=== PATIENT | male | born 1945 | race Caucasian/White ===

== ENCOUNTER 2016-08-17 17:48 | Emergency (ER) | payer OTHER, MEDICARE ==
[2016-08-17 17:59] VITALS: BP 169/79
[2016-08-17] MEDS ORDERED: Sodium Chloride 0.9% 10 ML Syringe FLUSH PRN (18:02)
[2016-08-17] MEDS ORDERED: Meclizine 12.5 MG Tab PO ONE (18:18)
--- NOTE | 2016-08-17 19:11 | EDM.PDOC ---
ED HPI GENERAL MEDICAL PROBLEM - General Chief Complaint: Syncope Stated Complaint: [facility] Time Seen by Provider: 08/17/16 18:01 Source of Information: Reports: Patient, RN Notes Reviewed - History of Present Illness INITIAL COMMENTS - FREE TEXT/NARRATIVE: 71-year-old male comes in after experiencing sudden onset of severe vertigo type dizziness at home this afternoon about an hour and a half ago. He was moving some things around in his garage, when he straightened or lifted his head on one occasion he had sudden onset of severe vertigo type dizziness. He states things were really spinning around on him. He was nauseated with this, somewhat lightheaded and dizzy. He did call EMS. When they arrived his blood pressure was very high in the 210 systolic range. Therefore they did recommend transport here to the ED. Symptoms did resolve while in route here to the ED with [place] living about [place] miles out of town. He's had no headache. He has chronic tinnitus. The nausea is gone. He has chronic paresthesias of both feet. He has Had no focal weakness. No speech difficulty chest pain, palpitations or other unusual symptomatology with this. - Related Data Allergies Allergy/AdvReac Type Severity Reaction Status Date / Time No Known Allergies Allergy Verified 11/20/13 19:15 Home Meds: Home Meds Allopurinol [Zyloprim] 200 mg PO DAILY 11/20/13 [History] Amoxicillin 500 mg PO BID #2 tab 11/20/13 [Rx] Amoxicillin/Clavulanate K [Augmentin XR 1000 MG] 2 tab PO Q12H #40 tab 11/20/13 [Rx] Amoxicillin/Potassium Clav [Augmentin 875-125 Tablet] 1 each PO BID #2 tablet [Rx] Aspirin [Filiberto Chewable Aspirin] 81 mg PO DAILY 11/20/13 [History] Omeprazole 40 mg PO DAILY 11/20/13 [History] Terazosin HCl [Terazosin] 2 mg PO DAILY 11/20/13 [History] metroNIDAZOLE [Flagyl] 500 mg PO Q8H #30 tab 11/20/13 [Rx] metroNIDAZOLE [Metronidazole] 500 mg PO TID #3 tablet 11/20/13 [Rx] Past Medical History HEENT History: Reports: Cataract Cardiovascular History: Reports: Hypertension Gastrointestinal History: Reports: Other (See Below) Other Gastrointestinal History: gallstones Neurological History: Reports: CVA, TIA, Other (See Below) Other Neuro History: hemorrhagic stroke in 1994 - Past Surgical History Respiratory Surgical History: Reports: None GI Surgical History: Reports: Appendectomy, Other (See Below) Other GI Surgeries/Procedures: gallstone removal, liver laceration from gallstone removal, 14" of colon removed Social & Family History - Tobacco Use Smoking Status *Q: Former Smoker Years of Tobacco use: 11 Used Tobacco, but Quit: Yes Month Tobacco Last Used: 5 days Second Hand Smoke Exposure: No - Caffeine Use Caffeine Use: Reports: Coffee, Soda - Alcohol Use Days Per Week of Alcohol Use: 0 - Recreational Drug Use Recreational Drug Use: No ED ROS GENERAL - Review of Systems Review Of Systems: See Below Constitutional: Reports: Diaphoresis (Mild, gone). Denies: Fever, Chills HEENT: Reports: Vertigo (Severe, gone). Denies: Ear Pain, Sinus Problem, Throat Pain Respiratory: Denies: Shortness of Breath Cardiovascular: Denies: Chest Pain GI/Abdominal: Reports: Nausea. Denies: Abdominal Pain, Diarrhea, Vomiting Musculoskeletal: Denies: Shoulder Pain, Arm Pain, Leg Pain Skin: Reports: No Symptoms Neurological: Reports: Dizziness. Denies: Trouble Speaking (Severe, gone), Weakness (No focal weakness) ED EXAM, DIZZINESS - Physical Exam Exam: See Below General Appearance: Alert, No Apparent Distress Eye Exam: Left Eye: Other (Left pupil is irregular from prior cataract surgery) Ears: Normal External Exam, Normal Canal, Normal TMs Nose: Normal Inspection Throat/Mouth: Normal Inspection, Normal Oropharynx Head Exam: Atraumatic, Other (No facial droop). No: Facial Swelling Neck: Supple, Full Range of Motion Respiratory/Chest: No Respiratory Distress, Lungs Clear, Normal Breath Sounds Cardiovascular: Regular Rate, Rhythm GI/Abdominal: Soft, Non-Tender Neurological: Alert, No Motor/Sensory Deficits, Other Extremities: Normal Inspection, Normal Range of Motion Skin Exam: Warm, Dry, Normal Color EKG INTERPRETATION EKG Date: 08/17/16 Rhythm: NSR [place]: Normal P-Wave: Present QRS: Normal ST-T: Normal Course - Vital Signs Last Recorded V/S: Last Vital Signs Temp 97.7 F 08/17/16 17:56 Pulse 86 08/17/16 17:56 Resp 21 H 08/17/16 17:56 BP 169/79 H 08/17/16 17:56 Pulse Ox 93 L 08/17/16 18:06 - Orders/Labs/Meds Orders: Active Orders 24 hr Category Date Time Status EKG 12 Lead [EKG Documentation Completion] [] STAT Care 08/17/16 17:56 Active Peripheral IV Care [RC] . DIRECTED Care 08/17/16 18:02 Active Sodium Chloride 0.9% [Saline Flush] Med 08/17/16 18:02 Active 10 ml FLUSH ASDIRECTED PRN Peripheral IV Insertion Adult [OM.PC] Stat Oth 08/17/16 18:02 Ordered Medication Orders Sodium Chloride (Saline Flush) 10 ml FLUSH ASDIRECTED PRN PRN Reason: Keep Vein Open Last Admin: 08/17/16 18:24 Dose: 10 ml Labs: Laboratory Tests 08/17/16 08/17/16 Range/Units 18:19 18:19 WBC 5.88 (4.23-9.07) K/mm3 RBC 4.47 L (4.63-6.08) M/mm3 Hgb 13.6 L (13.7-17.5) gm/L Hct 38.8 L (40.1-51.0) % MCV 86.8 (79.0-92.2) fl MCH 30.4 (25.7-32.2) pg MCHC 35.1 (32.2-35.5) g/dl RDW Std Deviation 46.9 H (35.1-43.9) fL Plt Count 142 L (163-337) K/mm3 MPV 10.4 (9.4-12.3) fl Neut % (Auto) 67.3 (34.0-67.9) % Lymph % (Auto) 19.0 L (21.8-53.1) % [place] % (Auto) 9.9 (5.3-12.2) % Eos % (Auto) 3.1 (0.8-7.0) Baso % (Auto) 0.5 (0.1-1.2) % Neut # (Auto) 3.96 (1.78-5.38) K/mm3 Lymph # (Auto) 1.12 L (1.32-3.57) K/mm3 [place] # (Auto) 0.58 (0.30-0.82) K/mm3 Eos # (Auto) 0.18 (0.04-0.54) K/mm3 Baso # (Auto) 0.03 (0.01-0.08) K/mm3 Sodium 137 (136-145) mEq/L Potassium 3.7 (3.5-5.1) mEq/L Chloride 103 (98-107) mEq/L Carbon Dioxide 21 (21-32) mEq/L Anion Gap 16.7 H (5-15) BUN 24 H (7-18) mg/dL Creatinine 1.6 H (0.7-1.3) mg/dL Est Cr Clr Drug Dosing 45.13 mL/min Estimated GFR (MDRD) 43 (>60) mL/min BUN/Creatinine Ratio 15.0 (14-18) Glucose 184 H (83-115) mg/dL Calcium 9.0 (8.5-10.1) mg/dL Total Bilirubin 0.4 (0.2-1.0) mg/dL AST 34 (15-37) U/L ALT 63 (16-63) U/L Alkaline Phosphatase 76 (46-116) U/L Total Protein 7.0 (6.4-8.2) g/dl Albumin 3.8 (3.4-5.0) g/dl Globulin 3.2 gm/dL Albumin/Globulin Ratio 1.2 (1-2) Meds: Medications Generic Name Dose Route Start Last Admin Trade Name Freq PRN Reason Stop Dose Admin Sodium Chloride 10 ml 08/17/16 18:02 08/17/16 18:24 Saline Flush FLUSH 10 ml ASDIRECTED PRN Administration Keep Vein Open Discontinued Medications Generic Name Dose Route Start Last Admin Trade Name Freq PRN Reason Stop Dose Admin Meclizine HCl 25 mg 08/17/16 18:18 08/17/16 18:25 Antivert PO 08/17/16 18:19 25 mg ONETIME ONE Administration - Re-Assessments/Exams Free Text/Narrative Re-Assessment/Exam: 08/17/16 19:08 Patient is been resting comfortably while here in the ED. Labs are normal. EKG was normal. He continues in sinus rhythm no ectopy. Departure - Departure Time of Disposition: 19:11 Disposition: Home, Self-Care 01 Condition: Fair Clinical Impression: Labyrinthitis Qualifiers: Laterality: unspecified laterality Qualified Code(s): H83.09 - Labyrinthitis, unspecified ear - Discharge Information Forms: ED Department Discharge Additional Instructions: Rest, drink plenty of water to maintain hydration, move slowly and carefully. If you do experience onset of severe dizziness or vertigo again the best thing to do is just lie down and rest for about 20-30 minutes holding your head still. If the severe vertigo continues or symptoms otherwise worsening return to ED as needed. I do recommend following up with your regular medical provider next week if possible, call Friday morning for appointment. I do recommend picking up some meclizine or Antivert on your way out of town today. It is available OTC. You will need to ask the pharmacist for that. You may take 25 mg every 8-12 hours if needed for any further dizziness or vertigo. - My Orders Last 24 Hours: My Active Orders 08/17/16 17:56 EKG 12 Lead [EKG Documentation Completion] [RC] STAT 08/17/16 18:02 Peripheral IV Care [RC] . DIRECTED Sodium Chloride 0.9% [Saline Flush] 10 ml FLUSH ASDIRECTED PRN Peripheral IV Insertion Adult [OM.PC] Stat - Assessment/Plan Last 24 Hours: My Active Orders 08/17/16 17:56 EKG 12 Lead [EKG Documentation Completion] [RC] STAT 08/17/16 18:02 Peripheral IV Care [RC] . DIRECTED Sodium Chloride 0.9% [Saline Flush] 10 ml FLUSH ASDIRECTED PRN Peripheral IV Insertion Adult [OM.PC] Stat
== END 2016-08-17 19:26 | disposition home or self-care (01) ==
LOC: JD.ED 17:48
DX: H83.09 Labyrinthitis, unspecified ear (principal); I10 Essential (primary) hypertension; Z86.73 Personal history of transient ischemic attack (TIA), and cerebral infarction without residual deficits; Z90.49 Acquired absence of other specified parts of digestive tract; Z87.891 Personal history of nicotine dependence; Z79.899 Other long term (current) drug therapy; Z79.82 Long term (current) use of aspirin
CPT/HCPCS: 36415; 80053; 85025; 93005; 99284; A9270; J7050

== ENCOUNTER 2017-10-17 16:55 | Inpatient (IN) | payer OTHER, MEDICARE ==
--- NOTE | 2017-10-17 17:40 | EDM.PDOC ---
ED HPI GENERAL MEDICAL PROBLEM - General Chief Complaint: Cardiovascular Problem Stated Complaint: HEART SKIPPING BEATS Time Seen by Provider: 10/17/17 17:13 Source of Information: Reports: Patient History Limitations: Reports: No Limitations - History of Present Illness INITIAL COMMENTS - FREE TEXT/NARRATIVE: Patient is a 72-year-old male who presents ED with shortness of breath, palpitations, chronic cough, and abdominal discomfort. States today with bending over felt his heart was going fast and skipping. He became nauseous and short of breath. Son who is present states the patient was winded with exertion. On examination with admission to the ED patient's O2 sats were 84% on room air. With talking O2 sats would decrease. Currently on 3 L/m at 92%. Per patient is O2 sats are chronically low. States he's felt some discomfort to his abdomen along where a large surgical incision with ventral hernia is present. He 's been bloated with excessive burping. No diarrhea. He has a history constipation. No blood present within the stool. He's been mildly nauseated at times with no emesis. There's been no orthopnea/PND. Recent weight gain. He currently has no chest pain with examination. He has had no times any chest pain with exertion. Of note patients abdominal complaint has been chronic and been going on for many years after surgery. It is aggravated with eating, movement, palpation, coughing among other things. This is not a new occurrence. Past medical history includes: Gout, coronary disease, stroke, TIA, diabetes, hypertension, GERD, hyponatremia. Current medications see list. - Related Data Allergies Allergy/AdvReac Type Severity Reaction Status Date / Time No Known Allergies Allergy Verified 11/20/13 19:15 Home Meds: Home Meds Allopurinol [Zyloprim] 200 mg PO DAILY 11/20/13 [History] Amoxicillin 500 mg PO BID #2 tab 11/20/13 [Rx] Amoxicillin/Clavulanate K [Augmentin XR 1000 MG] 2 tab PO Q12H #40 tab 11/20/13 [Rx] Amoxicillin/Potassium Clav [Augmentin 875-125 Tablet] 1 each PO BID #2 tablet [Rx] Aspirin [Filiberto Chewable Aspirin] 81 mg PO DAILY 11/20/13 [History] Omeprazole 40 mg PO DAILY 11/20/13 [History] Terazosin HCl [Terazosin] 2 mg PO DAILY 11/20/13 [History] metroNIDAZOLE [Flagyl] 500 mg PO Q8H #30 tab 11/20/13 [Rx] metroNIDAZOLE [Metronidazole] 500 mg PO TID #3 tablet 11/20/13 [Rx] Past Medical History HEENT History: Reports: Cataract Cardiovascular History: Reports: Hypertension Gastrointestinal History: Reports: Other (See Below) Other Gastrointestinal History: gallstones Neurological History: Reports: CVA, TIA, Other (See Below) Other Neuro History: hemorrhagic stroke in 1994 - Past Surgical History Respiratory Surgical History: Reports: None GI Surgical History: Reports: Appendectomy, Other (See Below) Other GI Surgeries/Procedures: gallstone removal, liver laceration from gallstone removal, 14" of colon removed Social & Family History - Caffeine Use Caffeine Use: Reports: Coffee, Soda ED ROS GENERAL - Review of Systems Review Of Systems: ROS reveals no pertinent complaints other than HPI. ED EXAM, GENERAL - Physical Exam Exam: See Below Exam Limited By: No Limitations General Appearance: Alert, WD/WN, No Apparent Distress Ears: Hearing Grossly Normal Nose: Normal Inspection Throat/Mouth: Normal Voice, No Airway Compromise Neck: Normal Inspection, Supple Respiratory/Chest: No Respiratory Distress, Lungs Clear, Normal Breath Sounds, No Accessory Muscle Use, Chest Non-Tender Cardiovascular: Normal Peripheral Pulses, Regular Rate, Rhythm, Extra Beats ( PACS) Peripheral Pulses: 1+: Posterior Tibial (L), Posterior Tibial (R), 2+: Radial (L ), Radial (R) GI/Abdominal: Normal Bowel Sounds, Soft, No Organomegaly, No Distention, Tender (Over ventral wall hernia from previous surgery. chronic unchanged per patient. ) (Male) Exam: Deferred Rectal (Males) Exam: Deferred Extremities: Normal Inspection, Normal Range of Motion, Non-Tender, Normal Capillary Refill, Other (trace to 1+ bilaterally, chronic unchanged. ) Neurological: Alert, Oriented, CN II-XII Intact, Normal Cognition, No Motor/ Sensory Deficits Psychiatric: Normal Affect, Normal Mood Skin Exam: Warm, Dry, Intact, Normal Color Course - Vital Signs Last Recorded V/S: Last Vital Signs Temp 98.3 F 10/17/17 17:18 Pulse 83 10/17/17 17:18 Resp 24 H 10/17/17 17:18 BP 161/98 H 10/17/17 17:18 Pulse Ox 84 L 10/17/17 17:18 - Orders/Labs/Meds Orders: Active Orders 24 hr Category Date Time Status Admission Status [Patient Status] [ADT] Routine ADT 10/17/17 22:14 Active Cardiac Monitoring [RC] CONTINUOUS Care 10/17/17 22:07 Active EKG 12 Lead [EKG Documentation Completion] [RC] STAT Care 10/17/17 17:37 Active Height and Weight [RC] DAILY Care 10/17/17 22:06 Active Intake and Output [RC] QSHIFT Care 10/17/17 22:07 Active Oxygen Therapy [RC] PRN Care 10/17/17 22:06 Active Peripheral IV Care [RC] . DIRECTED Care 10/17/17 17:37 Active Up ad Rayne [RC] ASDIRECTED Care 10/17/17 22:06 Active VTE/DVT Education [RC] PER UNIT ROUTINE Care 10/17/17 22:06 Active Vital Signs [RC] Q4H Care 10/17/17 22:06 Active Heart Healthy Diet [DIET] Diet 10/17/17 Breakfast Active Abdomen Series w Chest 1V [CR] Stat Exams 10/17/17 17:36 Taken PE Chest [Ang Chest] [CT] Stat Exams 10/17/17 20:17 Taken UA W/MICROSCOPIC [URIN] Stat Lab 10/17/17 17:36 Ordered Acetaminophen [Tylenol] Med 10/17/17 22:06 Ordered 650 mg PO Q4H PRN Acetaminophen/HYDROcodone [[place] 325-5 MG] Med 10/17/17 22:06 Ordered 1 tab PO Q4H PRN HYDROmorphone [Dilaudid] Med 10/17/17 22:06 Ordered 0.25 mg IVPUSH Q2H PRN LORazepam [Ativan] Med 10/17/17 22:06 Ordered 1 mg IV Q6H PRN LORazepam [Ativan] Med 10/17/17 22:06 Ordered 2 mg IVPUSH Q4H PRN Metoprolol Tartrate [Lopressor] Med 10/17/17 22:06 Ordered 5 mg IVPUSH Q4H PRN Nicotine [Habitrol] Med 10/17/17 22:06 Ordered 21 mg TRDERM DAILY PRN Ondansetron [Zofran] Med 08/31/18 22:06 Ordered 4 mg IV Q6H PRN Potassium Rep Pharmacy to Dose [Pharmacy to Dose - Med 10/17/17 22:15 Ordered Potassium Replacement] 1 dose .XX ASDIRECTED Promethazine [Phenergan] 12.5 mg Med 10/17/17 22:06 Ordered Sodium Chloride 0.9% [Normal Saline] 50 ml IV Q6H Sodium Chloride 0.9% [Normal Saline] 1,000 ml Med 10/17/17 17:45 Active IV ASDIRECTED Sodium Chloride 0.9% [Normal Saline] 100 ml Med 10/17/17 21:45 Active IV ASDIRECTED Sodium Chloride 0.9% [Normal Saline] 100 ml Med 10/17/17 22:00 Active IV ASDIRECTED Sodium Chloride 0.9% [Saline Flush] Med 10/17/17 17:37 Active 10 ml FLUSH ASDIRECTED PRN hydrALAZINE [Apresoline] Med 10/17/17 22:06 Ordered 20 mg IVPUSH Q4H PRN Peripheral IV Insertion Adult [OM.PC] Routine Oth 10/17/17 17:37 Ordered Resuscitation Status Routine Resus Stat 10/17/17 22:06 Ordered Medication Orders Acetaminophen (Tylenol) 650 mg PO Q4H PRN PRN Reason: Pain (Mild 1-3)/fever Hydrocodone Bitart/Acetaminophen ([place] 325-5 Mg) 1 tab PO Q4H PRN PRN Reason: Pain (moderate 4-6) Hydralazine HCl (Apresoline) 20 mg IVPUSH Q4H PRN PRN Reason: Hypertension Hydromorphone HCl (Dilaudid) 0.25 mg IVPUSH Q2H PRN PRN Reason: Pain (severe 7-10) Sodium Chloride (Normal Saline) 1,000 mls @ 125 mls/hr IV ASDIRECTED NAZ Last Admin: 10/17/17 18:16 Dose: 125 mls/hr Sodium Chloride (Normal Saline) 100 mls @ 4 mls/sec IV ASDIRECTED NAZ Last Admin: 10/17/17 21:45 Dose: 4 mls/sec Sodium Chloride (Normal Saline) 100 mls @ 4 mls/sec IV ASDIRECTED [facility] Promethazine HCl 12.5 mg/ (Sodium Chloride) 50.5 mls @ 100 mls/hr IV Q6H PRN PRN Reason: Nausea/Vomiting Lorazepam (Ativan) 2 mg IVPUSH Q4H PRN PRN Reason: Seizures Lorazepam (Ativan) 1 mg IV Q6H PRN PRN Reason: Nausea/Vomiting Metoprolol Tartrate (Lopressor) 5 mg IVPUSH Q4H PRN PRN Reason: Tachycardia Nicotine (Habitrol) 21 mg TRDERM DAILY PRN PRN Reason: Nicotine Dependence Ondansetron HCl (Zofran) 4 mg IV Q6H PRN PRN Reason: Nausea/Vomiting Potassium Chloride (Pharmacy To Dose - Potassium Replacement) 1 dose .XX ASDIRECTED NAZ Sodium Chloride (Saline Flush) 10 ml FLUSH ASDIRECTED PRN PRN Reason: Keep Vein Open Last Admin: 10/17/17 21:47 Dose: 10 ml Admin: 10/17/17 18:18 Dose: 10 ml Labs: Laboratory Tests 10/17/17 10/17/17 10/17/17 Range/Units 07:05 17:05 17:05 WBC 6.08 (4.23-9.07) K/mm3 RBC 5.15 (4.63-6.08) M/mm3 Hgb 15.0 (13.7-17.5) gm/L Hct 43.7 (40.1-51.0) % MCV 84.9 (79.0-92.2) fl MCH 29.1 (25.7-32.2) pg MCHC 34.3 (32.2-35.5) g/dl RDW Std Deviation 45.1 H (35.1-43.9) fL Plt Count 161 L (163-337) K/mm3 MPV 10.9 (9.4-12.3) fl Neutrophils % (Manual) 75 H (40-60) % Band Neutrophils % 0 (0-10) % Lymphocytes % (Manual) 22 (20-40) % Atypical Lymphs % 0 % Monocytes % (Manual) 1 L (2-10) % Eosinophils % (Manual) 2 (0.8-7.0) % Basophils % (Manual) 0 L (0.2-1.2) Platelet Estimate Adequate RBC Morph Comment Normal D-Dimer, Quantitative (0.19-0.50) mg/L Sodium 141 (136-145) mEq/L Potassium 3.5 (3.5-5.1) mEq/L Chloride 103 (98-107) mEq/L Carbon Dioxide 24 (21-32) mEq/L Anion Gap 17.5 H (5-15) BUN 18 (7-18) mg/dL Creatinine 1.5 H (0.7-1.3) mg/dL Est Cr Clr Drug Dosing 47.42 mL/min Estimated GFR (MDRD) 46 (>60) mL/min BUN/Creatinine Ratio 12.0 L (14-18) Glucose 156 H (83-115) mg/dL Calcium 9.3 (8.5-10.1) mg/dL Magnesium 2.1 (1.8-2.4) mg/dl Total Bilirubin 0.4 (0.2-1.0) mg/dL AST 48 H (15-37) U/L ALT 68 H (16-63) U/L Alkaline Phosphatase 80 (46-116) U/L Troponin I < 0.017 (0.00-0.056) ng/mL C-Reactive Protein 0.3 (<1.0) mg/dL NT-Pro-B Natriuret Pep 104 (0-125) pg/mL Total Protein 7.3 (6.4-8.2) g/dl Albumin 3.8 (3.4-5.0) g/dl Globulin 3.5 gm/dL Albumin/Globulin Ratio 1.1 (1-2) Mycoplasma pneumon IgM Negative (NEGATIVE) 10/17/17 10/17/17 Range/Units 17:05 20:55 WBC (4.23-9.07) K/mm3 RBC (4.63-6.08) M/mm3 Hgb (13.7-17.5) gm/L Hct (40.1-51.0) % MCV (79.0-92.2) fl MCH (25.7-32.2) pg MCHC (32.2-35.5) g/dl RDW Std Deviation (35.1-43.9) fL Plt Count (163-337) K/mm3 MPV (9.4-12.3) fl Neutrophils % (Manual) (40-60) % Band Neutrophils % (0-10) % Lymphocytes % (Manual) (20-40) % Atypical Lymphs % % Monocytes % (Manual) (2-10) % Eosinophils % (Manual) (0.8-7.0) % Basophils % (Manual) (0.2-1.2) Platelet Estimate RBC Morph Comment D-Dimer, Quantitative 0.54 H (0.19-0.50) mg/L Sodium (136-145) mEq/L Potassium (3.5-5.1) mEq/L Chloride (98-107) mEq/L Carbon Dioxide (21-32) mEq/L Anion Gap (5-15) BUN (7-18) mg/dL Creatinine (0.7-1.3) mg/dL Est Cr Clr Drug Dosing mL/min Estimated GFR (MDRD) (>60) mL/min BUN/Creatinine Ratio (14-18) Glucose (83-115) mg/dL Calcium (8.5-10.1) mg/dL Magnesium (1.8-2.4) mg/dl Total Bilirubin (0.2-1.0) mg/dL AST (15-37) U/L ALT (16-63) U/L Alkaline Phosphatase (46-116) U/L Troponin I < 0.017 (0.00-0.056) ng/mL C-Reactive Protein (<1.0) mg/dL NT-Pro-B Natriuret Pep (0-125) pg/mL Total Protein (6.4-8.2) g/dl Albumin (3.4-5.0) g/dl Globulin gm/dL Albumin/Globulin Ratio (1-2) Mycoplasma pneumon IgM (NEGATIVE) Meds: Medications Generic Name Dose Route Start Last Admin Trade Name Freq PRN Reason Stop Dose Admin Acetaminophen 650 mg 10/17/17 22:06 Tylenol PO Q4H PRN Pain (Mild 1-3)/fever Hydrocodone Bitart/Acetaminophen 1 tab 10/17/17 22:06 [place] 325-5 Mg PO Q4H PRN Pain (moderate 4-6) Hydralazine HCl 20 mg 10/17/17 22:06 Apresoline IVPUSH Q4H PRN Hypertension Hydromorphone HCl 0.25 mg 10/17/17 22:06 Dilaudid IVPUSH Q2H PRN Pain (severe 7-10) Sodium Chloride 1,000 mls @ 125 mls/hr 10/17/17 17:45 10/17/17 18:16 Normal Saline IV 125 mls/hr ASDIRECTED NAZ Administration Sodium Chloride 100 mls @ 4 mls/sec 10/17/17 21:45 10/17/17 21:45 Normal Saline IV 4 mls/sec ASDIRECTED NAZ Administration Sodium Chloride 100 mls @ 4 mls/sec 10/17/17 22:00 Normal Saline IV ASDIRECTED NAZ Promethazine HCl 12.5 mg/ 50.5 mls @ 100 mls/hr 10/17/17 22:06 Sodium Chloride IV Q6H PRN Nausea/Vomiting Lorazepam 2 mg 10/17/17 22:06 Ativan IVPUSH Q4H PRN Seizures Lorazepam 1 mg 10/17/17 22:06 Ativan IV Q6H PRN Nausea/Vomiting Metoprolol Tartrate 5 mg 10/17/17 22:06 Lopressor IVPUSH Q4H PRN Tachycardia Nicotine 21 mg 10/17/17 22:06 Habitrol TRDERM DAILY PRN Nicotine Dependence Ondansetron HCl 4 mg 10/17/17 22:06 Zofran IV Q6H PRN Nausea/Vomiting Potassium Chloride 1 dose 10/17/17 22:15 Pharmacy To Dose - Potassium Replacement .XX ASDIRECTED NAZ Sodium Chloride 10 ml 10/17/17 17:37 10/17/17 21:47 Saline Flush FLUSH 10 ml ASDIRECTED PRN Administration Keep Vein Open Discontinued Medications Generic Name Dose Route Start Last Admin Trade Name Freq PRN Reason Stop Dose Admin Iopamidol 100 ml 10/17/17 21:39 10/17/17 21:40 [id number] (76%) IVPUSH 10/17/17 21:40 100 ml ONETIME ONE Administration Iopamidol 50 ml 10/17/17 21:39 10/17/17 21:40 [id number] (76%) IVPUSH 10/17/17 21:40 50 ml ONETIME ONE Administration Iopamidol 100 ml 10/17/17 21:40 10/17/17 21:42 Isovue-370 (76%) IVPUSH 10/17/17 21:41 100 ml ONETIME ONE Administration Iopamidol 100 ml 10/17/17 21:45 10/17/17 21:46 Isovue-370 (76%) IVPUSH 10/17/17 21:46 100 ml ONETIME ONE Administration - Re-Assessments/Exams Free Text/Narrative Re-Assessment/Exam: IV established with normal saline. Initial labs and studies will include: CBC, chem 14, CRP, d-dimer, magnesium, mycoplasma pneumonia, proBNP, troponin, UA, EKG, and chest with abdominal series. EKG sinus rhythm at a rate of 98 with early R-wave transition, consider RVH, septal hypertrophy, occasional multifocal PVCs, QT is mildly prolonged. Chest x-ray reveals a small calcified nodule to the right lateral chest per patient secondary to agent orange. No other acute findings noted. X-ray of the abdomen nonspecific air in stool pattern. This was reviewed with Dr. Munguia. Final interpretation is pending. Labs reviewed: CBC essentially normal. D-dimer 0.54 for appropriate for patient' s age. Initial panel revealed AG 17.5, creatinine 1.5, AST and LT mildly elevated, troponin within normal limits. CRP normal. ProBNP 104. Mycoplasma is pending. During his ED visit patient has not experienced any additional episodes of atrial fibrillation. He is in a sinus rhythm with a few PACs. Second troponin ordered for 2044. 10/17/17 20:09 Patient ambulated with no increasing shortness of breath. SPO2 was 88% until he returned back to his room when it dropped to 85%. Again patient had no shortness of breath at all. I have discussed with the patient and obtaining a CTA of the chest to ensure he does not have a PE which is unlikely but due to his hypoxia and shortness of breath with admission it is of concern. Patient agrees to proceed with CT of the chest PE protocol. We have contacted medic with some relation to home O2 in preparation for discharge. 10/17/17 21:07 CTA of the chest impression: No acute findings. No central pulmonary embolism. Study is technically limited. Splenomegaly present. 2113 Per satellite tv technician installer the CTA was suboptimal. CT report did reveal the more peripheral first and second order branches cannot be adequately assessed. Thus CTA of the chest PE protocol will be repeated. Reviewed Tele with initial admission. I have not observed any episodes of a- fib. 2137 I discussed the patient with Dr. Colmenares he has agreed to admit the patient for hypoxia, telemetry for arrhythmias, further workup for COPD, sleep apnea, and possible medication changes for hypertension. There is a possibility the hypoxia secondary to bronchospasm secondary to the beta guille usage. MCG will be completed. Patient will be admitted to [facility] with Tele. MCG has been completed per nursing staff. 2nd CT of the chest PE protocol impression: No evidence of acute pulmonary embolism. 10/17/17 21:59 Seconds troponin is negative. Departure - Departure Time of Disposition: 21:55 Disposition: Admitted As Inpatient 64 Condition: Fair Clinical Impression: Hypoxia Referrals: PCP,None [Primary Care Provider] - Forms: ED Department Discharge - My Orders Last 24 Hours: My Active Orders 10/17/17 17:36 Abdomen Series w Chest 1V [CR] Stat UA W/MICROSCOPIC [URIN] Stat 10/17/17 17:37 EKG 12 Lead [EKG Documentation Completion] [RC] STAT Peripheral IV Care [RC] . DIRECTED Sodium Chloride 0.9% [Saline Flush] 10 ml FLUSH ASDIRECTED PRN Peripheral IV Insertion Adult [OM.PC] Routine 10/17/17 17:45 Sodium Chloride 0.9% [Normal Saline] 1,000 ml IV ASDIRECTED 10/17/17 20:17 PE Chest [Ang Chest] [CT] Stat 10/17/17 21:45 Sodium Chloride 0.9% [Normal Saline] 100 ml IV ASDIRECTED 10/17/17 22:00 Sodium Chloride 0.9% [Normal Saline] 100 ml IV ASDIRECTED 10/17/17 22:14 Admission Status [Patient Status] [ADT] Routine - Assessment/Plan Last 24 Hours: My Active Orders 10/17/17 17:36 Abdomen Series w Chest 1V [CR] Stat UA W/MICROSCOPIC [URIN] Stat 10/17/17 17:37 EKG 12 Lead [EKG Documentation Completion] [RC] STAT Peripheral IV Care [RC] . DIRECTED Sodium Chloride 0.9% [Saline Flush] 10 ml FLUSH ASDIRECTED PRN Peripheral IV Insertion Adult [OM.PC] Routine 10/17/17 17:45 Sodium Chloride 0.9% [Normal Saline] 1,000 ml IV ASDIRECTED 10/17/17 20:17 PE Chest [Ang Chest] [CT] Stat 10/17/17 21:45 Sodium Chloride 0.9% [Normal Saline] 100 ml IV ASDIRECTED 10/17/17 22:00 Sodium Chloride 0.9% [Normal Saline] 100 ml IV ASDIRECTED 10/17/17 22:14 Admission Status [Patient Status] [ADT] Routine
[2017-10-17] MEDS: Sodium Chloride 0.9% 1,000 ML IV SCH (18:16)
[2017-10-17] MEDS: Sodium Chloride 0.9% 10 ML Syringe FLUSH PRN ×2 (18:18→21:47)
[2017-10-17] MEDS ORDERED: Iopamidol 755 Mg/ML 100 ML Bottle IVPUSH ONE ×3 (21:39→21:45)
[2017-10-17] MEDS ORDERED: Iopamidol 755 MG/ML 50 ML Bottle IVPUSH ONE (21:39)
[2017-10-17] MEDS ORDERED: Sodium Chloride 0.9% 100 ML IV SCH ×2 (21:45→22:00)
[2017-10-17] MEDS ORDERED: Acetaminophen 325 MG Tab PO PRN (22:06)
[2017-10-17] MEDS ORDERED: Acetaminophen/HYDROcodone 325-5 MG Tab PO PRN (22:06)
[2017-10-17] MEDS ORDERED: LORazepam 2 MG/ML SDV IVPUSH PRN (22:06)
[2017-10-17] MEDS ORDERED: Ondansetron 4 MG/2 ML SDV IV PRN (22:06)
[2017-10-17] MEDS ORDERED: hydrALAZINE 20 MG/ML SDV IVPUSH PRN (22:06)
[2017-10-17] MEDS ORDERED: HYDROmorphone 0.5 MG/0.5 ML Syringe IVPUSH PRN (22:06)
[2017-10-17] MEDS ORDERED: Metoprolol Tartrate 5 MG/5 ML SDV IVPUSH PRN (22:06)
[2017-10-17] MEDS ORDERED: LORazepam 2 MG/ML SDV IV PRN (22:06)
[2017-10-17] MEDS ORDERED: Nicotine 21 MG/24 Hr Patch TRDERM PRN (22:06)
[2017-10-17] MEDS ORDERED: Promethazine 12.5 MG in Sodium Chloride 0.9% 50 ML IV PRN (22:06)
[2017-10-17] MEDS ORDERED: Bisacodyl 5 MG Tab PO PRN (22:38)
[2017-10-17] MEDS ORDERED: Albuterol/Ipratropium 3.0-0.5 MG/3 ML Neb Soln NEB PRN (22:38)
[2017-10-17] MEDS ORDERED: Docusate Sodium 100 MG Cap PO PRN (22:38)
[2017-10-17] MEDS ORDERED: Zolpidem 5 MG Tab PO PRN (22:38)
[2017-10-17] MEDS ORDERED: Polyethylene Glycol 3350 Powder 17 GM Packet PO PRN (22:38)
--- NOTE | 2017-10-18 00:16 | PCM.HP ---
H&P History of Present Illness - General Date of Service: 10/18/17 Admit Problem/Dx: Admission Diagnosis/Problem Admission Diagnosis/Problem Hypoxia Source of Information: Patient, Family, Provider, RN Notes Reviewed History Limitations: Reports: Physical Impairment - History of Present Illness Initial Comments - Free Text/Narative: This is a 72 yo elderly white male with past medical hx/o HTN, HLD, CAD, Hx/o Stoke/TIA, Gout, GERD, Pre-Diabetes, Hyponatremia, Spleen Disorder and Obesity who comes wiht multiple complaints of shortness of breath, heart palpitations, nausea, chronic cough and abdominal discomfort. His symptoms started when he he bend over and felt his heart goign fast and skipping. He reports no chets paisn or or dyspnea with exertion. Patient also reports abdominal discomfort and nauseas but w/o emesis. This seems to be chronic to him and is gravvated by eating, movement and coughing. He carries a chronic hx/o cosntipation but no diarrhea. He reports no recent trauma. His abdominal discomfort is coming from his incision site. He report no changes in his bowel habits or bowel character. His GI complaints are not new to him. His initial work up in ED shows a CBC remarkable for RDW of 45.1, Platelet count of 161, Neutrophils of 75%, Monocytes of 1%, and Basophils of 0%. His D- dimer is 0.54. His chemistrynis significant for anion gap of 17.5, Cr of 1.5, glucose of 156, AST of 48, and ALT of 68. His UA is negative for UTI. Chest x- ray shows mall calcified nodule to the right lateral chest. No other acute findings noted. X-ray of the abdomen nonspecific air in stool pattern. Chest CTA report reads negative for PE. Patient is being admitted for hypoxia and new onset of diabetes. He is full code. - Related Data Allergies/Adverse Reactions: Allergies Allergy/AdvReac Type Severity Reaction Status Date / Time No Known Allergies Allergy Verified 10/17/17 22:35 Home Medications: Home Meds RX: Allopurinol [Zyloprim] 200 mg PO DAILY 11/20/13 [History] RX: Omeprazole 40 mg PO DAILY 11/20/13 [History] RX: Terazosin HCl [Terazosin] 2 mg TOP BID 11/20/13 [History] Cholecalciferol (Vitamin D3) [Vitamin D3] 1,000 mg PO DAILY 10/18/17 [History] Clotrimazole [Clotrimazole 1%] 1 applic TOP BID 10/18/17 [History] Fluorometholone [Fluorometholone 0.1% Ophth Susp] 1 drop OP DAILY 10/18/17 [ History] RX: Acyclovir 400 mg PO DAILY 10/18/17 [History] RX: Dipyridamole 75 mg PO BID 10/18/17 [History] RX: Gemfibrozil 600 mg PO DAILY 10/18/17 [History] RX: Lisinopril 20 mg PO DAILY 10/18/17 [History] RX: Metoprolol Tartrate 50 mg PO BID 10/18/17 [History] RX: Simvastatin [Zocor] 20 mg PO DAILY 10/18/17 [History] RX: Sodium Chloride 5% [Nxion 128 5% Ophth Soln] 1 drop EYERT QID 10/18/17 [ History] hydroCHLOROthiazide [Hydrochlorothiazide] 12.5 mg PO DAILY 10/18/17 [History] Past Medical History HEENT History: Reports: Cataract Cardiovascular History: Reports: High Cholesterol, Hypertension Respiratory History: Reports: Sleep Apnea, Other (See Below) Other Respiratory History: States he can't wear a mask because he moves around too much Gastrointestinal History: Reports: Hiatal Hernia, Other (See Below) Other Gastrointestinal History: gallstones Genitourinary History: Reports: Other (See Below) Other Genitourinary History: "weak stream" Musculoskeletal History: Reports: Arthritis, Back Pain, Chronic, Gout Neurological History: Reports: CVA, TIA, Other (See Below) Other Neuro History: hemorrhagic stroke in 1994 Psychiatric History: Reports: Depression, PTSD Endocrine/Metabolic History: Reports: Obesity/BMI 30+ - Infectious Disease History Infectious Disease History: Reports: Chicken Pox, Influenza - Past Surgical History HEENT Surgical History: Reports: Cataract Surgery, LASIK, Other (See Below) Other HEENT Surgeries/Procedures: cornea transplant right eye Cardiovascular Surgical History: Reports: None Respiratory Surgical History: Reports: None GI Surgical History: Reports: Appendectomy, Other (See Below) Other GI Surgeries/Procedures: gallstone removal, liver laceration from gallstone removal, 14" of colon removed Male Surgical History: Reports: Circumcision, Vasectomy Endocrine Surgical History: Reports: None Neurological Surgical History: Reports: None Musculoskeletal Surgical History: Reports: Other (See Below) Other Musculoskeletal Surgeries/Procedures:: columb[place], pins and rods in the left knee Social & Family History - Family History Family Medical History: Noncontributory - Tobacco Use Smoking Status *Q: Former Smoker Used Tobacco, but Quit: No Month/Year Tobacco Last Used: 1975 Second Hand Smoke Exposure: No - Caffeine Use Caffeine Use: Reports: Coffee Other Caffeine Use: 4-5cupsofcoffee everyday - Recreational Drug Use Recreational Drug Use: No H&P Review of Systems - Review of Systems: Review Of Systems: ROS reveals no pertinent complaints other than HPI. Exam - Exam Exam: See Below - Vital Signs Vital Signs: Last Vital Signs Temp 36.8 C 10/17/17 17:18 Pulse 83 10/17/17 17:18 Resp 24 H 10/17/17 17:18 BP 161/98 H 10/17/17 17:18 Pulse Ox 84 L 10/17/17 17:18 Weight: 135.125 kg - Exam General: Alert, Oriented, Cooperative. No: Mild Distress - Patient Data Lab Results Last 24 hrs: Laboratory Results - last 24 hr 10/17/17 10/17/17 10/17/17 Range/Units 07:05 17:05 17:05 WBC 6.08 (4.23-9.07) K/mm3 RBC 5.15 (4.63-6.08) M/mm3 Hgb 15.0 (13.7-17.5) gm/L Hct 43.7 (40.1-51.0) % MCV 84.9 (79.0-92.2) fl MCH 29.1 (25.7-32.2) pg MCHC 34.3 (32.2-35.5) g/dl RDW Std Deviation 45.1 H (35.1-43.9) fL Plt Count 161 L (163-337) K/mm3 MPV 10.9 (9.4-12.3) fl Neutrophils % (Manual) 75 H (40-60) % Band Neutrophils % 0 (0-10) % Lymphocytes % (Manual) 22 (20-40) % Atypical Lymphs % 0 % Monocytes % (Manual) 1 L (2-10) % Eosinophils % (Manual) 2 (0.8-7.0) % Basophils % (Manual) 0 L (0.2-1.2) Platelet Estimate Adequate RBC Morph Comment Normal D-Dimer, Quantitative (0.19-0.50) mg/L Sodium 141 (136-145) mEq/L Potassium 3.5 (3.5-5.1) mEq/L Chloride 103 (98-107) mEq/L Carbon Dioxide 24 (21-32) mEq/L Anion Gap 17.5 H (5-15) BUN 18 (7-18) mg/dL Creatinine 1.5 H (0.7-1.3) mg/dL Est Cr Clr Drug Dosing 47.42 mL/min Estimated GFR (MDRD) 46 (>60) mL/min BUN/Creatinine Ratio 12.0 L (14-18) Glucose 156 H (83-115) mg/dL Hemoglobin A1c (4.50-6.20) % Calcium 9.3 (8.5-10.1) mg/dL Magnesium 2.1 (1.8-2.4) mg/dl Total Bilirubin 0.4 (0.2-1.0) mg/dL AST 48 H (15-37) U/L ALT 68 H (16-63) U/L Alkaline Phosphatase 80 (46-116) U/L Troponin I < 0.017 (0.00-0.056) ng/mL C-Reactive Protein 0.3 (<1.0) mg/dL NT-Pro-B Natriuret Pep 104 (0-125) pg/mL Total Protein 7.3 (6.4-8.2) g/dl Albumin 3.8 (3.4-5.0) g/dl Globulin 3.5 gm/dL Albumin/Globulin Ratio 1.1 (1-2) Free T4 (0.76-1.46) ng/dL TSH 3rd Generation (0.358-3.74) uIU/mL Mycoplasma pneumon IgM Negative (NEGATIVE) 10/17/17 10/17/17 10/17/17 Range/Units 17:05 20:55 23:00 WBC (4.23-9.07) K/mm3 RBC (4.63-6.08) M/mm3 Hgb (13.7-17.5) gm/L Hct (40.1-51.0) % MCV (79.0-92.2) fl MCH (25.7-32.2) pg MCHC (32.2-35.5) g/dl RDW Std Deviation (35.1-43.9) fL Plt Count (163-337) K/mm3 MPV (9.4-12.3) fl Neutrophils % (Manual) (40-60) % Band Neutrophils % (0-10) % Lymphocytes % (Manual) (20-40) % Atypical Lymphs % % Monocytes % (Manual) (2-10) % Eosinophils % (Manual) (0.8-7.0) % Basophils % (Manual) (0.2-1.2) Platelet Estimate RBC Morph Comment D-Dimer, Quantitative 0.54 H (0.19-0.50) mg/L Sodium (136-145) mEq/L Potassium (3.5-5.1) mEq/L Chloride (98-107) mEq/L Carbon Dioxide (21-32) mEq/L Anion Gap (5-15) BUN (7-18) mg/dL Creatinine (0.7-1.3) mg/dL Est Cr Clr Drug Dosing mL/min Estimated GFR (MDRD) (>60) mL/min BUN/Creatinine Ratio (14-18) Glucose (83-115) mg/dL Hemoglobin A1c (4.50-6.20) % Calcium (8.5-10.1) mg/dL Magnesium (1.8-2.4) mg/dl Total Bilirubin (0.2-1.0) mg/dL AST (15-37) U/L ALT (16-63) U/L Alkaline Phosphatase (46-116) U/L Troponin I < 0.017 (0.00-0.056) ng/mL C-Reactive Protein 0.5 (<1.0) mg/dL NT-Pro-B Natriuret Pep (0-125) pg/mL Total Protein (6.4-8.2) g/dl Albumin (3.4-5.0) g/dl Globulin gm/dL Albumin/Globulin Ratio (1-2) Free T4 0.84 (0.76-1.46) ng/dL TSH 3rd Generation 4.395 H (0.358-3.74) uIU/mL Mycoplasma pneumon IgM (NEGATIVE) 10/17/17 Range/Units 23:00 WBC (4.23-9.07) K/mm3 RBC (4.63-6.08) M/mm3 Hgb (13.7-17.5) gm/L Hct (40.1-51.0) % MCV (79.0-92.2) fl MCH (25.7-32.2) pg MCHC (32.2-35.5) g/dl RDW Std Deviation (35.1-43.9) fL Plt Count (163-337) K/mm3 MPV (9.4-12.3) fl Neutrophils % (Manual) (40-60) % Band Neutrophils % (0-10) % Lymphocytes % (Manual) (20-40) % Atypical Lymphs % % Monocytes % (Manual) (2-10) % Eosinophils % (Manual) (0.8-7.0) % Basophils % (Manual) (0.2-1.2) Platelet Estimate RBC Morph Comment D-Dimer, Quantitative (0.19-0.50) mg/L Sodium (136-145) mEq/L Potassium (3.5-5.1) mEq/L Chloride (98-107) mEq/L Carbon Dioxide (21-32) mEq/L Anion Gap (5-15) BUN (7-18) mg/dL Creatinine (0.7-1.3) mg/dL Est Cr Clr Drug Dosing mL/min Estimated GFR (MDRD) (>60) mL/min BUN/Creatinine Ratio (14-18) Glucose (83-115) mg/dL Hemoglobin A1c 6.90 H (4.50-6.20) % Calcium (8.5-10.1) mg/dL Magnesium (1.8-2.4) mg/dl Total Bilirubin (0.2-1.0) mg/dL AST (15-37) U/L ALT (16-63) U/L Alkaline Phosphatase (46-116) U/L Troponin I (0.00-0.056) ng/mL C-Reactive Protein (<1.0) mg/dL NT-Pro-B Natriuret Pep (0-125) pg/mL Total Protein (6.4-8.2) g/dl Albumin (3.4-5.0) g/dl Globulin gm/dL Albumin/Globulin Ratio (1-2) Free T4 (0.76-1.46) ng/dL TSH 3rd Generation (0.358-3.74) uIU/mL Mycoplasma pneumon IgM (NEGATIVE) Result Diagrams: 10/18/17 06:08 10/19/17 06:19 EKG INTERPRETATION EKG Interpretation Comments: EKG sinus rhythm at a rate of 98 with early R-wave transition, consider RVH, septal hypertrophy, occasional multifocal PVCs, QT is mildly prolonged. EKG did not personally review. Problem List Initiated/Reviewed/Updated: Yes Orders Last 24hrs: Active Orders 24 hr Category Date Time Status Admission Status [Patient Status] [ADT] Routine ADT 10/17/17 22:14 Active Cardiac Monitoring [RC] CONTINUOUS Care 10/17/17 22:07 Active EKG 12 Lead [EKG Documentation Completion] [RC] AM Care 10/18/17 07:00 Active EKG 12 Lead [EKG Documentation Completion] [RC] STAT Care 10/17/17 17:37 Active Height and Weight [RC] DAILY Care 10/17/17 22:06 Active Incentive Spirometry [RT Incentive Spirometry] [RC] Care 10/17/17 22:51 Active Q2HWA Intake and Output [RC] 22,04 Care 10/17/17 22:07 Active Oxygen Therapy [RC] PRN Care 10/17/17 22:06 Active Peripheral IV Care [RC] . DIRECTED Care 10/17/17 17:37 Active RT Aerosol Therapy [RC] ASDIRECTED Care 10/17/17 22:45 Active Up With Assistance [RC] ASDIRECTED Care 10/17/17 22:38 Active Up ad Rayne [RC] ASDIRECTED Care 10/17/17 22:06 Active VTE/DVT Education [RC] PER UNIT ROUTINE Care 10/17/17 22:38 Active Vital Signs [RC] Q4H Care 10/17/17 22:38 Active Consult to Case Management [CONS] Routine Cons 10/17/17 22:38 Active Consult to Master Automotive Glass Technician [CONS] Routine Cons 10/17/17 22:38 Active Consult to Syrup Mixer Assistant [CONS] Routine Cons 10/17/17 22:38 Active Consult to Spiritual Care [CONS] Routine Cons 10/17/17 22:38 Active OT Evaluation and Treatment [CONS] Routine Cons 10/17/17 22:38 Active PT Evaluation and Treatment [CONS] Routine Cons 10/17/17 22:38 Active Respiratory Care Assess and Treatment [CONS] Routine Cons 10/17/17 22:38 Active Heart Healthy Diet [DIET] Diet 10/17/17 Breakfast Active Abdomen Pelvis wo Cont [CT] Routine Exams 10/18/17 07:00 Ordered Abdomen Series w Chest 1V [CR] Stat Exams 10/17/17 17:36 Taken PE Chest [Ang Chest] [CT] Stat Exams 10/17/17 20:17 Taken Retroperitoneal Ltd [US] Routine Exams 10/17/17 22:56 Ordered CBC WITH AUTO DIFF [HEME] AM Lab 10/18/17 05:11 Ordered CKMB [CHEM] AM Lab 10/18/17 05:11 Ordered COMPREHENSIVE METABOLIC PN,CMP [CHEM] AM Lab 10/18/17 05:11 Ordered COMPREHENSIVE METABOLIC PN,CMP [CHEM] AM Lab 10/19/17 05:11 Ordered COMPREHENSIVE METABOLIC PN,CMP [CHEM] AM Lab 10/20/17 05:11 Ordered COMPREHENSIVE METABOLIC PN,CMP [CHEM] AM Lab 10/21/17 05:11 Ordered CULTURE SPUTUM + SMEAR [RM] Routine Lab 10/17/17 22:50 Ordered LIPID PANEL [CHEM] AM Lab 10/18/17 05:11 Ordered MICROALBUMIN,URINE RANDOM [URCHEM] Stat Lab 10/18/17 00:12 Ordered TROPONIN I [CHEM] AM Lab 10/18/17 05:11 Ordered UA W/MICROSCOPIC [URIN] Stat Lab 10/17/17 17:36 Ordered Acetaminophen [Tylenol] Med 10/17/17 22:06 Active 650 mg PO Q4H PRN Acetaminophen/HYDROcodone [[place] 325-5 MG] Med 10/17/17 22:06 Active 1 tab PO Q4H PRN Albuterol/Ipratropium [DuoNeb 3.0-0.5 MG/3 ML] Med 10/17/17 22:38 Active 3 ml NEB Q4H PRN Allopurinol [Zyloprim] Med 10/18/17 09:00 Active 200 mg PO DAILY Bisacodyl [Dulcolax] Med 10/17/17 22:38 Active 5 mg PO DAILY PRN Dextromethorphan/guaiFENesin [Robitussin DM] Med 10/18/17 07:00 Active 10 ml PO TID@0700,1400,2100 Docusate Sodium [Colace] Med 10/17/17 22:38 Active 100 mg PO BID PRN Docusate Sodium/Sennosides [Senna Plus] Med 10/17/17 22:38 Active 1 tab PO BID PRN Glimepiride Med 10/18/17 07:00 Ordered 4 mg PO WITHBREAKFAST HYDROmorphone [Dilaudid] Med 10/17/17 22:06 Active 0.25 mg IVPUSH Q2H PRN LORazepam [Ativan] Med 10/17/17 22:06 Active 1 mg IV Q6H PRN LORazepam [Ativan] Med 10/17/17 22:06 Active 2 mg IVPUSH Q4H PRN Lisinopril [Prinivil] Med 10/18/17 09:00 Ordered 20 mg PO DAILY Metoprolol Tartrate [Lopressor] Med 10/17/17 22:06 Active 5 mg IVPUSH Q4H PRN Nicotine [Habitrol] Med 10/17/17 22:06 Active 21 mg TRDERM DAILY PRN Ondansetron [Zofran] Med 10/17/17 22:06 Active 4 mg IV Q6H PRN Pantoprazole [ProTONIX] Med 10/18/17 07:00 Active 40 mg PO DAILY@0700 Polyethylene Glycol 3350 [MiraLAX] Med 10/17/17 22:38 Active 17 gm PO DAILY PRN Potassium Rep Pharmacy to Dose [Pharmacy to Dose - Med 10/17/17 22:15 Pending Potassium Replacement] 1 dose .XX ASDIRECTED Promethazine [Phenergan] 12.5 mg Med 10/17/17 22:06 Active Sodium Chloride 0.9% [Normal Saline] 50 ml IV Q6H Sodium Chloride 0.9% [Normal Saline] 1,000 ml Med 10/17/17 17:45 Active IV ASDIRECTED Sodium Chloride 0.9% [Normal Saline] 100 ml Med 10/17/17 21:45 Active IV ASDIRECTED Sodium Chloride 0.9% [Normal Saline] 100 ml Med 10/17/17 22:00 Active IV ASDIRECTED Sodium Chloride 0.9% [Saline Flush] Med 10/17/17 17:37 Active 10 ml FLUSH ASDIRECTED PRN Terazosin [Hytrin] Med 10/18/17 09:00 Active 2 mg PO DAILY Zolpidem [Ambien] Med 10/17/17 22:38 Active 5 mg PO BEDTIME PRN hydrALAZINE [Apresoline] Med 10/17/17 22:06 Active 20 mg IVPUSH Q4H PRN metFORMIN [Glucophage] Med 10/18/17 07:00 Ordered 500 mg PO BIDMEALS Peripheral IV Insertion Adult [OM.PC] Routine Oth 10/17/17 17:37 Ordered Resuscitation Status Routine Resus Stat 10/17/17 22:06 Ordered Medication Orders Acetaminophen (Tylenol) 650 mg PO Q4H PRN PRN Reason: Pain (Mild 1-3)/fever Hydrocodone Bitart/Acetaminophen ([place] 325-5 Mg) 1 tab PO Q4H PRN PRN Reason: Pain (moderate 4-6) Albuterol/Ipratropium (Duoneb 3.0-0.5 Mg/3 Ml) 3 ml NEB Q4H PRN PRN Reason: Shortness Of Breath/wheezing Allopurinol (Zyloprim) 200 mg PO DAILY NAZ Bisacodyl (Dulcolax) 5 mg PO DAILY PRN PRN Reason: Constipation Docusate Sodium (Colace) 100 mg PO BID PRN PRN Reason: Constipation Glimepiride (Glimepiride) 4 mg PO WITHBREAKFAST [facility] Guaifenesin/Phenylephrine HCl (Robitussin Dm) 10 ml PO TID@0700,1400,2100 NAZ Hydralazine HCl (Apresoline) 20 mg IVPUSH Q4H PRN PRN Reason: Hypertension Last Admin: 10/17/17 23:27 Dose: 20 mg Hydromorphone HCl (Dilaudid) 0.25 mg IVPUSH Q2H PRN PRN Reason: Pain (severe 7-10) Sodium Chloride (Normal Saline) 1,000 mls @ 125 mls/hr IV ASDIRECTED [facility] Last Admin: 10/17/17 18:16 Dose: 125 mls/hr Sodium Chloride (Normal Saline) 100 mls @ 4 mls/sec IV ASDIRECTED NAZ Last Admin: 10/17/17 21:45 Dose: 4 mls/sec Sodium Chloride (Normal Saline) 100 mls @ 4 mls/sec IV ASDIRECTED [facility] Promethazine HCl 12.5 mg/ (Sodium Chloride) 50.5 mls @ 100 mls/hr IV Q6H PRN PRN Reason: Nausea/Vomiting Lisinopril (Prinivil) 20 mg PO DAILY NAZ Lorazepam (Ativan) 2 mg IVPUSH Q4H PRN PRN Reason: Seizures Lorazepam (Ativan) 1 mg IV Q6H PRN PRN Reason: Nausea/Vomiting Metformin HCl (Glucophage) 500 mg PO BIDMEALS [facility] Metoprolol Tartrate (Lopressor) 5 mg IVPUSH Q4H PRN PRN Reason: Tachycardia Nicotine (Habitrol) 21 mg TRDERM DAILY PRN PRN Reason: Nicotine Dependence Ondansetron HCl (Zofran) 4 mg IV Q6H PRN PRN Reason: Nausea/Vomiting Pantoprazole Sodium (Protonix) 40 mg PO DAILY@0700 [facility] Polyethylene Glycol (Miralax) 17 gm PO DAILY PRN PRN Reason: Constipation Potassium Chloride (Pharmacy To Dose - Potassium Replacement) 1 dose .XX ASDIRECTED [facility] Senna/Docusate Sodium (Senna Plus) 1 tab PO BID PRN PRN Reason: Constipation Sodium Chloride (Saline Flush) 10 ml FLUSH ASDIRECTED PRN PRN Reason: Keep Vein Open Last Admin: 10/17/17 21:47 Dose: 10 ml Admin: 10/17/17 18:18 Dose: 10 ml Terazosin HCl (Hytrin) 2 mg PO DAILY [facility] Zolpidem Tartrate (Ambien) 5 mg PO BEDTIME PRN PRN Reason: Sleep Assessment/Plan Comment:: Assessment/Plan: Acute: Shortness of Breath with Hypoxia - Risk Factors: Obesity and Probable BRENNAN - CXR shows no obvious infiltrate - Chest CTA shows no PE - Supplemental O2 - Likely 2/2 Obesity Possible Irregular Heart Rate - HR stable; no significant fluctuations - Initial EKG shows sinus rhythm - Initial CE so far is negative - Telemetry to monitor possible abnormal rhythm - Unfortunately, we would not be able to perform 2D echo until Friday - Consider 48hr holter monitoring on discharge New Onset DM2 - He is aware he has been Pre-Diabetes - His 2 previous A1Cs have been 6-2-6.3; now 6.9 - Risk factors: Metabolic Syndrome, Hyperglycemia, Obesity and HLD - Metformin 500 mg po BID and Glipizide 5 mg po BID - He could benefit with SGLT2 and GLP-1 Inhibitors if the [facility] covers it Morbid Obesity - BMI of 40.4 - Counseled on [facility]SM - Outpatient Dietary consult for weight management Chronic: Impaired Vision HTN HLD CAD Gout GERD Hyponatremia Hx/o Stroke/TIA Tinnitus Back Pain Migraine BEAR Spleen Disorder Ventral Hernia BRENNAN Depression Plan: Admit to [facility] with Telemetry Resume Home Meds Routine AM Labs PT/OT evaluation Diabetic Education Dietary consult for weight management SW/CM for d/c planning Code status: 1
[2017-10-18] MEDS: Sodium Chloride 0.9% 1,000 ML IV SCH ×2 (02:22→10:13)
[2017-10-18] MEDS: Pantoprazole 40 MG Tab.CR PO SCH (06:46)
[2017-10-18] MEDS: metFORMIN 500 MG Tab PO SCH ×2 (06:48→17:16)
[2017-10-18] MEDS: guaiFENesin/Dextromethorphan 100-10 MG/5 ML Soln 5 ML Cup PO SCH ×4 (06:48→20:59)
[2017-10-18] MEDS ORDERED: Glimepiride 4 MG Tab PO SCH (07:00)
[2017-10-18] MEDS: Allopurinol 100 MG Tab PO SCH (09:11)
[2017-10-18] MEDS: Terazosin 1 MG Cap PO SCH (09:11)
[2017-10-18] MEDS: Lisinopril 20 MG Tab PO SCH (09:11)
--- NOTE | 2017-10-18 09:23 | PCM.SN ---
- Free Text/Narrative Note: Patient was seen and examined. He did not rest well last night due to beeping noise. He has no acute issues. No skipping heart beat. He has been informed about he new diagnosis of DM2. He has no complaints this AM. We will offer abdominal/pelvis CT scan due to abdominal distension. Spoke to his son who was with him last night with patient's permission and updated him about Zachery's new diagnosis of diabetes type 2, imaging test that we are going to run, and treatment plan.
[2017-10-18] MEDS ORDERED: Sodium Chloride 0.9% 10 ML Syringe FLUSH PRN (09:58)
[2017-10-18] MEDS: Potassium Chloride 20 MEQ Tab.ER PO SCH ×2 (11:20→14:00)
[2017-10-18] MEDS: OPTH EYERT SCH ×3 (12:21→20:52)
[2017-10-18] MEDS: SODIUM CHLORIDE 5% EYERT SCH ×3 (12:21→20:52)
[2017-10-18] MEDS: Metoprolol Tartrate 50 MG Tab PO SCH (20:49)
[2017-10-18] MEDS: Clotrimazole 1% Crm 30 GM Tube TOP SCH (20:51)
[2017-10-19] MEDS: Pantoprazole 40 MG Tab.CR PO SCH (06:15)
[2017-10-19] MEDS: guaiFENesin/Dextromethorphan 100-10 MG/5 ML Soln 5 ML Cup PO SCH ×3 (06:16→21:11)
[2017-10-19] MEDS: metFORMIN 500 MG Tab PO SCH (06:16)
[2017-10-19] MEDS: Terazosin 1 MG Cap PO SCH (08:28)
[2017-10-19] MEDS: Metoprolol Tartrate 50 MG Tab PO SCH ×2 (08:29→21:04)
[2017-10-19] MEDS: Simvastatin 40 MG Tab PO SCH (08:29)
[2017-10-19] MEDS: Allopurinol 100 MG Tab PO SCH (08:29)
[2017-10-19] MEDS: Cholecalciferol (Vitamin D3) 1,000 Unit Tab PO SCH (08:29)
[2017-10-19] MEDS: Lisinopril 20 MG Tab PO SCH (08:29)
[2017-10-19] MEDS: Gemfibrozil 600 MG Tab PO SCH (08:29)
[2017-10-19] MEDS: Acyclovir 200 MG Cap PO SCH (08:29)
[2017-10-19] MEDS: SODIUM CHLORIDE 5% EYERT SCH ×4 (08:37→21:10)
[2017-10-19] MEDS: OPTH EYERT SCH ×4 (08:37→21:10)
[2017-10-19] MEDS: Fluorometholone 0.1% Ophth Susp 5 ML Bottle EYERT SCH (08:40)
[2017-10-19] MEDS: Clotrimazole 1% Crm 30 GM Tube TOP SCH ×2 (08:55→21:10)
[2017-10-19] MEDS ORDERED: Lisinopril 20 MG Tab PO SCH (09:00)
--- NOTE | 2017-10-19 09:53 | PCM.PN ---
- General Info Date of Service: 10/19/17 Admission Dx/Problem (Free Text): Admission Diagnosis/Problem Admission Diagnosis/Problem Hypoxia Functional Status: Reports: Pain Controlled, Tolerating Diet, Ambulating, Urinating, New Symptoms - Review of Systems General: Denies: Fever, Chills HEENT: Reports: No Symptoms Pulmonary: Denies: Shortness of Breath Gastrointestinal: Reports: Diarrhea, Flatus, Nausea. Denies: Constipation, Decreased Appetite, Difficulty Swallowing, Melena, Vomiting Genitourinary: Reports: No Symptoms Musculoskeletal: Reports: No Symptoms Skin: Reports: No Symptoms Neurological: Reports: No Symptoms, Gait Disturbance. Denies: Weakness Psychiatric: Denies: Depression, Anxiety, Agitation, Hallucinations Systems Review Comment:: No significant overnight issues. However he reports having diarrhea this AM. This is not related to his usual chronic GI problem with nausea and discomfort. He is currently on Metformin 500 mg po BID. He rested well last night. No reports of skipping heart beat and no abnormal heart rate observed on telemetry. - Patient Data Vitals - Most Recent: Last Vital Signs Temp 36.5 C 10/19/17 08:42 Pulse 71 10/19/17 08:42 Resp 18 10/19/17 05:15 BP 142/76 H 10/19/17 08:29 Pulse Ox 95 10/19/17 08:45 Weight - Most Recent: 135.987 kg I&O - Last 24 Hours: Intake & Output 10/18/17 10/19/17 10/19/17 22:59 06:59 14:59 Intake Total 2440 800 Output Total 1900 1550 Balance 540 -750 Lab Results Last 24 Hours: Laboratory Results - last 24 hr 10/18/17 10/18/17 10/19/17 Range/Units 16:56 20:59 06:15 Sodium (136-145) mEq/L Potassium (3.5-5.1) mEq/L Chloride (98-107) mEq/L Carbon Dioxide (21-32) mEq/L Anion Gap (5-15) BUN (7-18) mg/dL Creatinine (0.7-1.3) mg/dL Est Cr Clr Drug Dosing mL/min Estimated GFR (MDRD) (>60) mL/min BUN/Creatinine Ratio (14-18) Glucose (83-115) mg/dL POC Glucose 118 H 142 H 137 H (83-110) mg/dL Calcium (8.5-10.1) mg/dL Total Bilirubin (0.2-1.0) mg/dL AST (15-37) U/L ALT (16-63) U/L Alkaline Phosphatase (46-116) U/L Total Protein (6.4-8.2) g/dl Albumin (3.4-5.0) g/dl Globulin gm/dL Albumin/Globulin Ratio (1-2) 10/19/17 Range/Units 06:19 Sodium 140 (136-145) mEq/L Potassium 3.9 (3.5-5.1) mEq/L Chloride 106 (98-107) mEq/L Carbon Dioxide 24 (21-32) mEq/L Anion Gap 13.9 (5-15) BUN 13 (7-18) mg/dL Creatinine 1.2 (0.7-1.3) mg/dL Est Cr Clr Drug Dosing 59.28 mL/min Estimated GFR (MDRD) 59 (>60) mL/min BUN/Creatinine Ratio 10.8 L (14-18) Glucose 148 H (83-115) mg/dL POC Glucose (83-110) mg/dL Calcium 9.3 (8.5-10.1) mg/dL Total Bilirubin 0.6 (0.2-1.0) mg/dL AST 48 H (15-37) U/L ALT 68 H (16-63) U/L Alkaline Phosphatase 67 (46-116) U/L Total Protein 6.5 (6.4-8.2) g/dl Albumin 3.5 (3.4-5.0) g/dl Globulin 3.0 gm/dL Albumin/Globulin Ratio 1.2 (1-2) Med Orders - Current: Current Medications Acetaminophen (Tylenol) 650 mg PO Q4H PRN PRN Reason: Pain (Mild 1-3)/fever Hydrocodone Bitart/Acetaminophen ([place] 325-5 Mg) 1 tab PO Q4H PRN PRN Reason: Pain (moderate 4-6) Acyclovir (Zovirax) 400 mg PO DAILY NAZ Last Admin: 10/19/17 08:29 Dose: 400 mg Albuterol/Ipratropium (Duoneb 3.0-0.5 Mg/3 Ml) 3 ml NEB Q4H PRN PRN Reason: Shortness Of Breath/wheezing Allopurinol (Zyloprim) 200 mg PO DAILY [facility] Last Admin: 10/19/17 08:29 Dose: 200 mg Bisacodyl (Dulcolax) 5 mg PO DAILY PRN PRN Reason: Constipation Cholecalciferol (Vitamin D3) 1,000 units PO DAILY [facility] Last Admin: 10/19/17 08:29 Dose: 1,000 units Clotrimazole (Lotrimin Af 1% Crm) 0 gm TOP BID [facility] Last Admin: 10/19/17 08:55 Dose: Not Given Dipyridamole (Dipyridamole) 75 mg PO BID [facility] Last Admin: 10/19/17 08:28 Dose: 75 mg Docusate Sodium (Colace) 100 mg PO BID PRN PRN Reason: Constipation Fluorometholone (Flarex 0.1% Ophth Susp) 0 ml EYERT DAILY [facility] Last Admin: 10/19/17 08:40 Dose: 1 drop Gemfibrozil (Lopid) 600 mg PO DAILY [facility] Last Admin: 10/19/17 08:29 Dose: 600 mg Guaifenesin/Phenylephrine HCl (Robitussin Dm) 10 ml PO TID@0700,1400,2100 [facility] Last Admin: 10/19/17 06:16 Dose: Not Given Hydralazine HCl (Apresoline) 20 mg IVPUSH Q4H PRN PRN Reason: Hypertension Last Admin: 10/17/17 23:27 Dose: 20 mg Hydromorphone HCl (Dilaudid) 0.25 mg IVPUSH Q2H PRN PRN Reason: Pain (severe 7-10) Promethazine HCl 12.5 mg/ (Sodium Chloride) 50.5 mls @ 100 mls/hr IV Q6H PRN PRN Reason: Nausea/Vomiting Lisinopril (Prinivil) 20 mg PO DAILY [facility] Last Admin: 10/19/17 08:29 Dose: 20 mg Lorazepam (Ativan) 2 mg IVPUSH Q4H PRN PRN Reason: Seizures Lorazepam (Ativan) 1 mg IV Q6H PRN PRN Reason: Nausea/Vomiting Metformin HCl (Glucophage) 500 mg PO WITHBREAKFAST [facility] Metoprolol Tartrate (Lopressor) 5 mg IVPUSH Q4H PRN PRN Reason: Tachycardia Metoprolol Tartrate (Lopressor) 50 mg PO BID [facility] Last Admin: 10/19/17 08:29 Dose: 50 mg Nicotine (Habitrol) 21 mg TRDERM DAILY PRN PRN Reason: Nicotine Dependence Ondansetron HCl (Zofran) 4 mg IV Q6H PRN PRN Reason: Nausea/Vomiting Pantoprazole Sodium (Protonix) 40 mg PO DAILY@0700 [facility] Last Admin: 10/19/17 06:15 Dose: 40 mg Sodium Chloride 5% (Opth Solution) 0 each EYERT QID [facility] Last Admin: 10/19/17 08:37 Dose: Not Given Polyethylene Glycol (Miralax) 17 gm PO DAILY PRN PRN Reason: Constipation Potassium Chloride (Pharmacy To Dose - Potassium Replacement) 0 dose .XX ASDIRECTED PRN PRN Reason: RX TO WATCH K LEVELS Senna/Docusate Sodium (Senna Plus) 1 tab PO BID PRN PRN Reason: Constipation Simvastatin (Zocor) 40 mg PO DAILY [facility] Last Admin: 10/19/17 08:29 Dose: 40 mg Sodium Chloride (Saline Flush) 10 ml FLUSH ASDIRECTED PRN PRN Reason: Keep Vein Open Last Admin: 10/17/17 21:47 Dose: 10 ml Sodium Chloride (Saline Flush) 10 ml FLUSH ASDIRECTED PRN PRN Reason: Keep Vein Open Terazosin HCl (Hytrin) 2 mg PO DAILY [facility] Last Admin: 10/19/17 08:28 Dose: 2 mg Zolpidem Tartrate (Ambien) 5 mg PO BEDTIME PRN PRN Reason: Sleep Discontinued Medications Glimepiride (Glimepiride) 4 mg PO WITHBREAKFAST [facility] Last Admin: 10/18/17 06:48 Dose: Not Given Sodium Chloride (Normal Saline) 1,000 mls @ 125 mls/hr IV ASDIRECTED [facility] Last Admin: 10/18/17 10:13 Dose: 125 mls/hr Sodium Chloride (Normal Saline) 100 mls @ 4 mls/sec IV ASDIRECTED [facility] Last Admin: 10/17/17 21:45 Dose: 4 mls/sec Sodium Chloride (Normal Saline) 100 mls @ 4 mls/sec IV ASDIRECTED [facility] Iopamidol (Isovue-370 (76%)) 100 ml IVPUSH ONETIME ONE Stop: 10/17/17 21:40 Last Admin: 10/17/17 21:40 Dose: 100 ml Iopamidol (Isovue-370 (76%)) 50 ml IVPUSH ONETIME ONE Stop: 10/17/17 21:40 Last Admin: 10/17/17 21:40 Dose: 50 ml Iopamidol (Isovue-370 (76%)) 100 ml IVPUSH ONETIME ONE Stop: 10/17/17 21:41 Last Admin: 10/17/17 21:42 Dose: 100 ml Iopamidol (Isovue-370 (76%)) 100 ml IVPUSH ONETIME ONE Stop: 10/17/17 21:46 Last Admin: 10/17/17 21:46 Dose: 100 ml Lisinopril (Prinivil) 20 mg PO DAILY [facility] Metformin HCl (Glucophage) 500 mg PO BIDMEALS [facility] Last Admin: 10/19/17 06:16 Dose: 500 mg Potassium Chloride (Klor-Con M20) 20 meq PO Q4H [facility] Stop: 10/18/17 15:01 Last Admin: 10/18/17 14:00 Dose: 20 meq - Exam General: Alert, Oriented, Cooperative, No Acute Distress, Other (Obese) HEENT: Pupils Equal, Pupils Reactive, EOMI, Mucous Membr. Moist/[place] Neck: Supple, Trachea Midline, No JVD, No Thyromegaly, Other (short and thick) Lungs: Clear to Auscultation, Normal Respiratory Effort, Decreased Breath Sounds Cardiovascular: Regular Rate, Regular Rhythm GI/Abdominal Exam: Normal Bowel Sounds, Soft, Non-Tender, No Organomegaly, No Distention, No Abnormal Bruit, No Mass, Other (Obese) (Male) Exam: Deferred Back Exam: Normal Inspection, Decreased Range of Motion Extremities: Normal Inspection, Normal Range of Motion, Non-Tender, No Pedal Edema, Normal Capillary Refill Peripheral Pulses: 2+: Dorsalis Pedis (L), Dorsalis Pedis (R) Skin: Warm, Dry, Intact Neurological: No New Focal Deficit Psy/Mental Status: Alert, Normal Affect, Normal Mood - Problem List Review Problem List Initiated/Reviewed/Updated: Yes - My Orders Last 24 Hours: My Active Orders 10/18/17 09:00 Allopurinol [Zyloprim] 200 mg PO DAILY Lisinopril [Prinivil] 20 mg PO DAILY Terazosin [Hytrin] 2 mg PO DAILY 10/18/17 09:58 Sodium Chloride 0.9% [Saline Flush] 10 ml FLUSH ASDIRECTED PRN Saline Lock Insert [OM.PC] Routine 10/18/17 13:00 Patient's Own Medication [Ptom] 0 each EYERT QID 10/18/17 13:33 Blood Glucose Check, Bedside [RC] QIDACANDBED 10/18/17 14:54 Abdomen Pelvis wo Cont [CT] Routine 10/18/17 21:00 Clotrimazole [Lotrimin AF 1% Crm] 0 gm TOP BID Dipyridamole 75 mg PO BID Metoprolol Tartrate [Lopressor] 50 mg PO BID 10/19/17 09:00 Acyclovir [Zovirax] 400 mg PO DAILY Cholecalciferol (Vitamin D3) [Vitamin D3] 1,000 units PO DAILY Fluorometholone [Flarex 0.1% Ophth Susp] 0 ml EYERT DAILY Gemfibrozil [Lopid] 600 mg PO DAILY Simvastatin [Zocor] 40 mg PO DAILY 10/20/17 05:11 COMPREHENSIVE METABOLIC PN,CMP [CHEM] AM 10/20/17 07:00 metFORMIN [Glucophage] 500 mg PO WITHBREAKFAST 10/21/17 05:11 COMPREHENSIVE METABOLIC PN,CMP [CHEM] AM - Plan Plan:: Assessment/Plan: Acute: Diarrhea 2/2 Metformin - Will cut down frequency to 1 tab po daily in AM - Start Glipizide 2.5 mg po BID - Continue to monitor sugar New Onset DM2 - He is aware he has been Pre-Diabetes - His 2 previous A1Cs have been 6-2-6.3; now 6.9 - Risk factors: Metabolic Syndrome, Hyperglycemia, Obesity and HLD - Metformin 500 mg po BID and Glipizide 5 mg po BID - He could benefit with SGLT2 and GLP-1 Inhibitors if the [facility] covers it - Provided brochures for above new diabetic drugs Morbid Obesity - BMI of 40.4 - Counseled on LSM - Outpatient Dietary consult for weight management Resolved: S/p Shortness of Breath with Hypoxia - Risk Factors: Obesity and Probable BRENNAN - CXR shows no obvious infiltrate - Chest CTA shows no PE - Supplemental O2 - Likely 2/2 Obesity S/p Possible Irregular Heart Rate - HR stable; no significant fluctuations - Initial EKG shows sinus rhythm - Initial CE so far is negative - Telemetry to monitor possible abnormal rhythm - Unfortunately, we would not be able to perform 2D echo until Friday - Consider 48hr holter monitoring on discharge Chronic: Impaired Vision HTN HLD CAD Gout GERD Hyponatremia Hx/o Stroke/TIA Tinnitus Back Pain Migraine BEAR Spleen Disorder Ventral Hernia BRENNA[place] Diverticulosis on CT scan Depression Plan: He is clinically stable Routine AM Labs Outpatient Diabetic Education and Dietary consult for weight management MERLIN/PATO for d/c planning 2D echo and 48hr holter monitoring outpatient Code status: 1 Possible d/c in AM
[2017-10-19] MEDS: glipiZIDE 2.5 MG Tab.ER PO SCH (21:01)
[2017-10-20] MEDS: Pantoprazole 40 MG Tab.CR PO SCH (06:37)
[2017-10-20] MEDS: guaiFENesin/Dextromethorphan 100-10 MG/5 ML Soln 5 ML Cup PO SCH (06:38)
[2017-10-20] MEDS ORDERED: metFORMIN 500 MG Tab PO SCH (07:00)
[2017-10-20] MEDS: Metoprolol Tartrate 50 MG Tab PO SCH (08:32)
[2017-10-20] MEDS: Terazosin 1 MG Cap PO SCH (08:33)
[2017-10-20] MEDS: Simvastatin 40 MG Tab PO SCH (08:33)
[2017-10-20] MEDS: Lisinopril 20 MG Tab PO SCH (08:33)
[2017-10-20] MEDS: Cholecalciferol (Vitamin D3) 1,000 Unit Tab PO SCH (08:33)
[2017-10-20] MEDS: Acyclovir 200 MG Cap PO SCH (08:33)
[2017-10-20] MEDS: Allopurinol 100 MG Tab PO SCH (08:33)
[2017-10-20] MEDS: Gemfibrozil 600 MG Tab PO SCH (08:34)
[2017-10-20] MEDS: glipiZIDE 2.5 MG Tab.ER PO SCH (08:34)
[2017-10-20] MEDS: Fluorometholone 0.1% Ophth Susp 5 ML Bottle EYERT SCH (08:38)
[2017-10-20] MEDS: Clotrimazole 1% Crm 30 GM Tube TOP SCH (09:24)
--- NOTE | 2017-10-20 10:43 | PCM.DCSUM1 ---
Discharge Summary - Hospital Course Brief History: This is a 72 yo elderly white male with past medical hx/o HTN, HLD, CAD, Hx/o Stoke/TIA, Gout, GERD, Pre-Diabetes, Hyponatremia, Spleen Disorder and Obesity who comes wiht multiple complaints of shortness of breath, heart palpitations, nausea, chronic cough and abdominal discomfort. His symptoms started when he he bend over and felt his heart goign fast and skipping. He reports no chets paisn or or dyspnea with exertion. Patient also reports abdominal discomfort and nauseas but w/o emesis. This seems to be chronic to him and is gravvated by eating, movement and coughing. He carries a chronic hx/o cosntipation but no diarrhea. He reports no recent trauma. His abdominal discomfort is coming from his incision site. He report no changes in his bowel habits or bowel character. His GI complaints are not new to him. His initial work up in ED shows a CBC remarkable for RDW of 45.1, Platelet count of 161, Neutrophils of 75%, Monocytes of 1%, and Basophils of 0%. His D-dimer is 0.54. His chemistrynis significant for anion gap of 17.5, Cr of 1.5, glucose of 156, AST of 48, and ALT of 68. His UA is negative for UTI. Chest x-ray shows mall calcified nodule to the right lateral chest. No other acute findings noted. X-ray of the abdomen nonspecific air in stool pattern. Chest CTA report reads negative for PE. Patient is being admitted for hypoxia and new onset of diabetes. He is full code. Diagnosis: Stroke: No Modified Enio Scale: No Symptoms at All Modified Enio Scale Score: 0 - Discharge Data Discharge Date: 10/20/17 Discharge Disposition: Home, Self-Care 01 Condition: Good - Discharge Diagnosis/Problem(s) (1) Diabetes mellitus, new onset SNOMED Code(s): 929049628, 220114617 ICD Code: E11.9 - TYPE 2 DIABETES MELLITUS WITHOUT COMPLICATIONS Status: Acute Current Visit: Yes (2) Diarrhea due to drug SNOMED Code(s): 948286474 ICD Code: K52.1 - TOXIC GASTROENTERITIS AND COLITIS Status: Resolved Current Visit: Yes (3) Morbid obesity SNOMED Code(s): 958691347 ICD Code: E66.01 - MORBID (SEVERE) OBESITY DUE TO EXCESS CALORIES Status: Chronic Current Visit: Yes (4) Hypoxia SNOMED Code(s): 634672427 ICD Code: R09.02 - HYPOXEMIA Status: Acute Current Visit: Yes (5) Heart palpitations SNOMED Code(s): 80766614 ICD Code: R00.2 - PALPITATIONS Status: Resolved Current Visit: Yes - Patient Summary/Data Operative Procedure(s) Performed: None Complications: None Consults: Consultations 10/17/17 22:38 Consult to Case Management [CONS] Routine Consult to Mobile Solutions Architect [CONS] Routine Consult to Chest Painting Leader [CONS] Routine Consult to Spiritual Care [CONS] Routine OT Evaluation and Treatment [CONS] Routine PT Evaluation and Treatment [CONS] Routine Respiratory Care Assess and Treatment [CONS] Routine Labs Pending at D/C: None Recommended Follow-up Testing/Procedures: None Planned Operative Procedure(s) after DC: None - Patient Instructions Diet: Heart Healthy Diet, Usual Diet as Tolerated, Diabetic Diet, Weight Loss Diet Activity: As Tolerated Driving: Do Not Drive Showering/Bathing: May Shower Notify Provider of: Fever, Increased Pain, Nausea and/or Vomiting Other/Special Instructions: - Please take all new medications as directed. - Resume all home medications as directed and continue routine activities as tolerated. - Recommend light walking if tolerated and proper diet for weight management. - Recommend 2D echo for cardiac baseline. - Recommend glucose check before each meal and at bedtime. Show log on follow up appointment with your PCP. - Recommend blood pressure and heart rate check and follow parameters before taking your anti-hypertensive pills. Show log on follow up appointment with your PCP. - Dicuseed Jardiance and Victoza with your PCP. - Call or follow up with your PCP for any questions or concerns after discharge. - Follow up with you PCP in 1-2 week. - Come back or seek immediate care should your symptoms persist or get worse - Discharge Plan *PRESCRIPTION DRUG MONITORING PROGRAM REVIEWED*: Not Applicable *COPY OF PRESCRIPTION DRUG MONITORING REPORT IN PATIENT WAYNE: Not Applicable Prescriptions/Med Rec: glipiZIDE [Glucotrol XL] 2.5 mg PO BID #60 tab.er metFORMIN [Glucophage] 500 mg PO ASDIRECTED #30 tablet Home Medications: Home Meds Allopurinol [Zyloprim] 200 mg PO DAILY 11/20/13 [History] Omeprazole 40 mg PO DAILY 11/20/13 [History] Acyclovir 400 mg PO DAILY 10/18/17 [History] Cholecalciferol (Vitamin D3) [Vitamin D3] 1,000 mg PO DAILY 10/18/17 [History] Clotrimazole [Clotrimazole 1%] 1 applic TOP BID 10/18/17 [History] Dipyridamole 75 mg PO BID 10/18/17 [History] Fluorometholone [Fluorometholone 0.1% Ophth Susp] 1 drop OP DAILY 10/18/17 [ History] Gemfibrozil 600 mg PO DAILY 10/18/17 [History] Sodium Chloride 5% [Nixon 128 5% Ophth Soln] 1 drop EYERT QID 10/18/17 [History] Lisinopril 20 mg PO DAILY #0 10/20/17 [Rx] Metoprolol Tartrate 50 mg PO BID #0 10/20/17 [Rx] Simvastatin [Zocor] 40 mg PO DAILY #0 10/20/17 [Rx] Terazosin HCl [Terazosin] 2 mg TOP BID #0 10/20/17 [Rx] glipiZIDE [Glucotrol XL] 2.5 mg PO BID #60 tab.er 10/20/17 [Rx] hydroCHLOROthiazide [Hydrochlorothiazide] 12.5 mg PO DAILY #0 10/20/17 [Rx] metFORMIN [Glucophage] 500 mg PO ASDIRECTED #30 tablet 10/20/17 [Rx] Patient Handouts: Hypoxemia, Type 2 Diabetes Mellitus, Self Care, Adult, Easy- to-Read, Cardiac Event Monitoring, Obesity, Adult, [id number] Referrals: PCP,None [Primary Care Provider] - (Please call and schedule an appointment with your primary care doctor within 1 to 2 weeks of discharge. ) - Discharge Summary/Plan Comment DC Time >30 min.: Yes (45 mins) Discharge Summary/Plan Comment: Discharge to Home [facility] - General Info Date of Service: 10/20/17 Admission Dx/Problem (Free Text: Admission Diagnosis/Problem Admission Diagnosis/Problem Hypoxia Subjective Update: Follow Up Functional Status: Reports: Pain Controlled, Tolerating Diet, Ambulating, Urinating. Denies: New Symptoms - Review of Systems General: Denies: Fever, Weakness, Fatigue, Malaise, Chills HEENT: Reports: No Symptoms Pulmonary: Denies: Shortness of Breath, Cough Cardiovascular: Denies: Chest Pain, Dyspnea on Exertion, Lightheadedness Gastrointestinal: Denies: Abdominal Pain, Decreased Appetite, Diarrhea, Difficulty Swallowing, Nausea, Vomiting Genitourinary: Reports: No Symptoms Musculoskeletal: Reports: No Symptoms Skin: Denies: Cyanosis, Mottled, Pallor, Diaphoresis, Rash Neurological: Denies: No Symptoms, Difficulty Walking, Weakness, Gait Disturbance Psychiatric: Denies: Depression, Anxiety, Agitation, Hallucinations Systems Review Comment: No overnight or acute issues. He rested well. He has no complaints. - Patient Data Vitals - Most Recent: Last Vital Signs Temp 36.6 C 10/20/17 08:29 Pulse 65 10/20/17 08:32 Resp 16 10/20/17 08:29 BP 145/86 H 10/20/17 08:33 Pulse Ox 92 L 10/20/17 08:29 Weight - Most Recent: 135.312 kg I&O - Last 24 hours: Intake & Output 10/19/17 10/20/17 10/20/17 22:59 06:59 14:59 Intake Total 800 800 Output Total 300 Balance 500 800 Lab Results - Last 24 hrs: Laboratory Results - last 24 hr 10/19/17 10/19/17 10/19/17 Range/Units 11:48 17:30 21:07 Sodium (136-145) mEq/L Potassium (3.5-5.1) mEq/L Chloride (98-107) mEq/L Carbon Dioxide (21-32) mEq/L Anion Gap (5-15) BUN (7-18) mg/dL Creatinine (0.7-1.3) mg/dL Est Cr Clr Drug Dosing mL/min Estimated GFR (MDRD) (>60) mL/min BUN/Creatinine Ratio (14-18) Glucose (83-115) mg/dL POC Glucose 109 120 H 150 H (83-110) mg/dL Calcium (8.5-10.1) mg/dL Total Bilirubin (0.2-1.0) mg/dL AST (15-37) U/L ALT (16-63) U/L Alkaline Phosphatase (46-116) U/L Total Protein (6.4-8.2) g/dl Albumin (3.4-5.0) g/dl Globulin gm/dL Albumin/Globulin Ratio (1-2) 10/20/17 10/20/17 Range/Units 05:55 06:04 Sodium 140 (136-145) mEq/L Potassium 3.9 (3.5-5.1) mEq/L Chloride 105 (98-107) mEq/L Carbon Dioxide 25 (21-32) mEq/L Anion Gap 13.9 (5-15) BUN 18 (7-18) mg/dL Creatinine 1.4 H (0.7-1.3) mg/dL Est Cr Clr Drug Dosing 50.81 mL/min Estimated GFR (MDRD) 50 (>60) mL/min BUN/Creatinine Ratio 12.9 L (14-18) Glucose 129 H (83-115) mg/dL POC Glucose 115 H (83-110) mg/dL Calcium 9.6 (8.5-10.1) mg/dL Total Bilirubin 0.6 (0.2-1.0) mg/dL AST 54 H (15-37) U/L ALT 78 H (16-63) U/L Alkaline Phosphatase 75 (46-116) U/L Total Protein 7.2 (6.4-8.2) g/dl Albumin 3.8 (3.4-5.0) g/dl Globulin 3.4 gm/dL Albumin/Globulin Ratio 1.1 (1-2) Med Orders - Current: Current Medications Acetaminophen (Tylenol) 650 mg PO Q4H PRN PRN Reason: Pain (Mild 1-3)/fever Hydrocodone Bitart/Acetaminophen (Creole 325-5 Mg) 1 tab PO Q4H PRN PRN Reason: Pain (moderate 4-6) Acyclovir (Zovirax) 400 mg PO DAILY [facility] Last Admin: 10/20/17 08:33 Dose: 400 mg Albuterol/Ipratropium (Duoneb 3.0-0.5 Mg/3 Ml) 3 ml NEB Q4H PRN PRN Reason: Shortness Of Breath/wheezing Allopurinol (Zyloprim) 200 mg PO DAILY [facility] Last Admin: 10/20/17 08:33 Dose: 200 mg Bisacodyl (Dulcolax) 5 mg PO DAILY PRN PRN Reason: Constipation Cholecalciferol (Vitamin D3) 1,000 units PO DAILY [facility] Last Admin: 10/20/17 08:33 Dose: 1,000 units Clotrimazole (Lotrimin Af 1% Crm) 0 gm TOP BID [facility] Last Admin: 10/20/17 09:24 Dose: 1 applic Dipyridamole (Dipyridamole) 75 mg PO BID [facility] Last Admin: 10/20/17 08:35 Dose: 75 mg Docusate Sodium (Colace) 100 mg PO BID PRN PRN Reason: Constipation Fluorometholone (Flarex 0.1% Ophth Susp) 0 ml EYERT DAILY [facility] Last Admin: 10/20/17 08:38 Dose: 1 drop Gemfibrozil (Lopid) 600 mg PO DAILY [facility] Last Admin: 10/20/17 08:34 Dose: 600 mg Glipizide (Glucotrol Xl) 2.5 mg PO BID [facility] Last Admin: 10/20/17 08:34 Dose: 2.5 mg Guaifenesin/Phenylephrine HCl (Robitussin Dm) 10 ml PO TID@0700,1400,2100 [facility] Last Admin: 10/20/17 06:38 Dose: Not Given Hydralazine HCl (Apresoline) 20 mg IVPUSH Q4H PRN PRN Reason: Hypertension Last Admin: 10/17/17 23:27 Dose: 20 mg Hydromorphone HCl (Dilaudid) 0.25 mg IVPUSH Q2H PRN PRN Reason: Pain (severe 7-10) Promethazine HCl 12.5 mg/ (Sodium Chloride) 50.5 mls @ 100 mls/hr IV Q6H PRN PRN Reason: Nausea/Vomiting Lisinopril (Prinivil) 20 mg PO DAILY [facility] Last Admin: 10/20/17 08:33 Dose: 20 mg Lorazepam (Ativan) 2 mg IVPUSH Q4H PRN PRN Reason: Seizures Lorazepam (Ativan) 1 mg IV Q6H PRN PRN Reason: Nausea/Vomiting Metformin HCl (Glucophage) 500 mg PO WITHBREAKFAST [facility] Last Admin: 10/20/17 06:37 Dose: 500 mg Metoprolol Tartrate (Lopressor) 5 mg IVPUSH Q4H PRN PRN Reason: Tachycardia Metoprolol Tartrate (Lopressor) 50 mg PO BID [facility] Last Admin: 10/20/17 08:32 Dose: 50 mg Nicotine (Habitrol) 21 mg TRDERM DAILY PRN PRN Reason: Nicotine Dependence Ondansetron HCl (Zofran) 4 mg IV Q6H PRN PRN Reason: Nausea/Vomiting Pantoprazole Sodium (Protonix) 40 mg PO DAILY@0700 [facility] Last Admin: 10/20/17 06:37 Dose: 40 mg Sodium Chloride 5% (Opth Solution) 0 each EYERT QID [facility] Last Admin: 10/19/17 21:10 Dose: Not Given Polyethylene Glycol (Miralax) 17 gm PO DAILY PRN PRN Reason: Constipation Potassium Chloride (Pharmacy To Dose - Potassium Replacement) 0 dose .XX ASDIRECTED PRN PRN Reason: RX TO WATCH K LEVELS Senna/Docusate Sodium (Senna Plus) 1 tab PO BID PRN PRN Reason: Constipation Simvastatin (Zocor) 40 mg PO DAILY [facility] Last Admin: 10/20/17 08:33 Dose: 40 mg Sodium Chloride (Saline Flush) 10 ml FLUSH ASDIRECTED PRN PRN Reason: Keep Vein Open Last Admin: 10/17/17 21:47 Dose: 10 ml Sodium Chloride (Saline Flush) 10 ml FLUSH ASDIRECTED PRN PRN Reason: Keep Vein Open Terazosin HCl (Hytrin) 2 mg PO DAILY [facility] Last Admin: 10/20/17 08:33 Dose: 2 mg Zolpidem Tartrate (Ambien) 5 mg PO BEDTIME PRN PRN Reason: Sleep Discontinued Medications Glimepiride (Glimepiride) 4 mg PO WITHBREAKFAST [facility] Last Admin: 10/18/17 06:48 Dose: Not Given Sodium Chloride (Normal Saline) 1,000 mls @ 125 mls/hr IV ASDIRECTED [facility] Last Admin: 10/18/17 10:13 Dose: 125 mls/hr Sodium Chloride (Normal Saline) 100 mls @ 4 mls/sec IV ASDIRECTED [facility] Last Admin: 10/17/17 21:45 Dose: 4 mls/sec Sodium Chloride (Normal Saline) 100 mls @ 4 mls/sec IV ASDIRECTED [facility] Iopamidol (Isovue-370 (76%)) 100 ml IVPUSH ONETIME ONE Stop: 10/17/17 21:40 Last Admin: 10/17/17 21:40 Dose: 100 ml Iopamidol (Isovue-370 (76%)) 50 ml IVPUSH ONETIME ONE Stop: 10/17/17 21:40 Last Admin: 10/17/17 21:40 Dose: 50 ml Iopamidol (Isovue-370 (76%)) 100 ml IVPUSH ONETIME ONE Stop: 10/17/17 21:41 Last Admin: 10/17/17 21:42 Dose: 100 ml Iopamidol (Isovue-370 (76%)) 100 ml IVPUSH ONETIME ONE Stop: 10/17/17 21:46 Last Admin: 10/17/17 21:46 Dose: 100 ml Lisinopril (Prinivil) 20 mg PO DAILY [facility] Metformin HCl (Glucophage) 500 mg PO BIDMEALS [facility] Last Admin: 10/19/17 06:16 Dose: 500 mg Potassium Chloride (Klor-Con M20) 20 meq PO Q4H [facility] Stop: 10/18/17 15:01 Last Admin: 10/18/17 14:00 Dose: 20 meq - Exam Quality Assessment: Reports: Supplemental Oxygen General: Reports: Alert, Oriented, Cooperative, No Acute Distress, Other ( Morbidly Obese) HEENT: Reports: Pupils Equal, Pupils Reactive, EOMI, Mucous Membr. Moist/[place], Other (short and thick) Neck: Reports: Supple, Trachea Midline, No Thyromegaly, Lymphadenopathy Lungs: Reports: Normal Respiratory Effort, Decreased Breath Sounds Cardiovascular: Reports: Regular Rate, Regular Rhythm GI/Abdominal Exam: Normal Bowel Sounds, Soft, Non-Tender, No Organomegaly, No Distention, No Abnormal Bruit, No Mass, Other (Obese) (Male) Exam: Deferred Rectal (Males) Exam: Deferred Back Exam: Reports: Normal Inspection, Decreased Range of Motion Extremities: Normal Inspection, Normal Range of Motion, Non-Tender, No Pedal Edema, Normal Capillary Refill Skin: Reports: Warm, Dry, Intact Neurological: Reports: No New Focal Deficit Psy/Mental Status: Reports: Alert, Normal Affect, Normal Mood
[2017-10-20] MEDS: OPTH EYERT SCH (11:29)
[2017-10-20] MEDS: SODIUM CHLORIDE 5% EYERT SCH (11:29)
[2017-10-20 12:33] VITALS: BP 113/78
--- NOTE | 2017-10-22 10:17 | CR ---
Abdominal series: Supine and upright views of the abdomen were obtained as well as frontal view of the chest. Comparison: No prior abdominal series. Calcified nodule is identified within the right base. No acute parenchymal change is seen. Heart size is normal. Several calcified mediastinal lymph nodes are seen. Tortuous thoracic aorta is seen. No free air is identified. Mild scoliosis is noted with the spine with scattered degenerative endplate spurring. Surgical clips are seen from prior cholecystectomy. Calcifications are seen within the pelvis which are compatible with phleboliths. Bowel gas pattern is normal. Impression: 1. Findings as noted above. Nothing acute is appreciated on abdominal series. Diagnostic code #2
--- NOTE | 2017-10-22 11:15 | CT ---
CT chest Technique: Multiple axial sections through the chest are obtained. Intravenous contrast was utilized. Findings: Pulmonary arteries are not optimally opacified. No filling defects are seen within the main or segmental branches to indicate pulmonary emboli. Small distal subsegmental pulmonary emboli could easily be missed. Calcified granuloma is noted within the right lung base. Calcified lymph nodes are seen within the mediastinum. Mild coronary artery calcification is seen. Small hiatal hernia is noted. No acute parenchymal change is seen. Impression: 1. Pulmonary arteries are not optimally opacified. No filling defects are seen within the main or segmental branches to indicate pulmonary embolism. 2. Other incidental findings. Diagnostic code #2 I agree with preliminary report from [facility], finalized on 10/17/17, 10:44 PM Central Time
--- NOTE | 2017-10-23 06:45 | CT ---
CT abdomen and pelvis Technique: Multiple axial sections were obtained from above the dome of the diaphragm inferiorly through the pubic symphysis. Intravenous and oral contrast not utilized. Comparison: Prior CT abdomen and pelvis exam of 11/20/13. Findings: Visualized lung bases show a large calcified granuloma on the right side. Mild areas of scarring are seen within both lung bases. Small low density finding is seen next to the ligamentum teres fissure which is stable from previous CT exam compatible with small cyst. No additional abnormality is seen within the liver. Small hiatal hernia is seen. Calcified granulomas are noted within the spleen. Spleen size is slightly enlarged at 14.6 cm. Spleen measured about 13.7 cm in length on previous study. Adrenal glands are unremarkable. Pancreas is normal. Prior cholecystectomy is seen. Kidneys show no abnormal calcifications or hydronephrosis. Aorta shows atherosclerotic change which continues into the iliac vessels. No aneurysm is identified. Increased density is seen adjacent to the anterior abdominal wall at the level of the umbilicus most likely due to scarring from prior surgery which is an interval change from previous study. Please correlate. No bowel dilatation is seen. Incidental sigmoid diverticuli are seen. No inflammatory change is seen. Appendix not visualized with certainty. No free fluid is seen. Prostate gland is slightly enlarged containing calcifications. Scattered degenerative changes within the spine is seen. Impression: 1. Mild splenomegaly. This finding is of questionable significance. 2. Old granulomatous disease as noted above. 3. Other incidental findings. Nothing acute is seen on noncontrast CT study of the abdomen and pelvis. Diagnostic code #2 I agree with preliminary report from [facility], finalized on 10/18/17, 6:47 PM Central Time
== END 2017-10-20 13:09 | disposition home or self-care (01) | DRG 638 ==
LOC: JD.ED 16:55 → JD.MS 22:14
PROVIDERS: ADMIT Internal Medicine; ATTEND Internal Medicine
DX: E11.65 Type 2 diabetes mellitus with hyperglycemia (principal); Z68.41 Body mass index [BMI] 40.0-44.9, adult; K52.1 Toxic gastroenteritis and colitis; I10 Essential (primary) hypertension; E78.5 Hyperlipidemia, unspecified; I25.10 Atherosclerotic heart disease of native coronary artery without angina pectoris; M10.9 Gout, unspecified; K21.9 Gastro-esophageal reflux disease without esophagitis; R09.02 Hypoxemia; E66.01 Morbid (severe) obesity due to excess calories; R00.2 Palpitations; K59.09 Other constipation; E78.00 Pure hypercholesterolemia, unspecified; M19.90 Unspecified osteoarthritis, unspecified site; G89.29 Other chronic pain; M54.9 Dorsalgia, unspecified; F32.9 Major depressive disorder, single episode, unspecified; F43.10 Post-traumatic stress disorder, unspecified; G47.33 Obstructive sleep apnea (adult) (pediatric); E88.81 Metabolic syndrome and other insulin resistance; K43.9 Ventral hernia without obstruction or gangrene; D73.9 Disease of spleen, unspecified; T38.3X5A Adverse effect of insulin and oral hypoglycemic [antidiabetic] drugs, initial encounter; H93.19 Tinnitus, unspecified ear; G43.909 Migraine, unspecified, not intractable, without status migrainosus; Z79.82 Long term (current) use of aspirin; Z87.891 Personal history of nicotine dependence; Z79.899 Other long term (current) drug therapy; Z79.84 Long term (current) use of oral hypoglycemic drugs; Z86.73 Personal history of transient ischemic attack (TIA), and cerebral infarction without residual deficits
CPT/HCPCS: 36415; 71275; 71275-26; 74022; 74022-26; 74176; 80053; 80061; 81001; 82044; 82553; 82962; 83036; 83735; 83880; 84439; 84443; 84484; 85007; 85025; 85027; 85379; 86140; 86738; 93005; 93225; 93226; 94760; 94761; 96360; 96361; 97162-GP; 99285-25; A9270-GY; J0360; J7030; J7040; J7050; Q9967

== ENCOUNTER 2019-01-28 19:17 | Emergency (ER) | payer OTHER, MEDICARE ==
[2019-01-28 19:29] VITALS: BP 149/86; PULSE 78
[2019-01-28] MEDS ORDERED: Sodium Chloride 0.9% 10 ML Syringe FLUSH PRN (19:44)
--- NOTE | 2019-01-28 19:48 | EDM.PDOC ---
ED HPI GENERAL MEDICAL PROBLEM - General Chief Complaint: Cardiovascular Problem Stated Complaint: CHEST PAIN/HEART SKIPPING A BEAT Time Seen by Provider: 01/28/19 19:43 Source of Information: Reports: Patient History Limitations: Reports: No Limitations - History of Present Illness INITIAL COMMENTS - FREE TEXT/NARRATIVE: 73 year old male presents to the ED with recurrent sharp stabbing chest pains since yesterday am . henrye griffin. Feels like his heart is skipping beats. Unclear if past history of paroxysmal atrial fib. Mild cough. Diffuse upper abdominal pain that seems to radiate up into the lower retrosternal chest. Some burping and belching. Gallbladder has been previously removed. Has a large ventral hernia that gives him a good deal of discomfort. Problems with constipation since on new pain medications and Norflex for back pain. States he feels slightly more short of breath. No fever or chills. He has had a flu shot and a Pneumovax shot this year. He has had these pains before and he seemed to be related to eating. He eats about 3:30 4:00 in the afternoon and today he only had a ham sandwich with a little bit of Djon mustard on it and a handful of cheese puffs. Occasions of been changed recently to help control pain in his back. No increased dose of lisinopril to 40 mg twice a day for blood pressure control. Has very labile hypertension. Patient is a type II diabetic. He is currently down from 305 pounds to 280 pounds since he had all his teeth removed. He is waiting for his dentures. He's been eating a lot of soft foods including mashed potatoes and therefore hasn't been checking his weight or sugars much. Onset: Sudden Onset Date: 01/27/19 (Sharp stabbing chest pains off and on since yesterday morning.) Onset Time: 07:00 Duration: Day(s):, Getting Worse, Intermittent, Waxing/Waning Location: Reports: Chest (Mostly pains are felt in the inferior lower retrosternal area and epigastrium. The do not seem to radiate through to his back. I do not radiate up into his neck throat or left arm.) Quality: Reports: Sharp, Stabbing. Denies: Pressure Severity: Moderate Improves with: Reports: None Worsens with: Reports: Eating (He can't find anything that seems to make a difference.) Context: Denies: Activity, Exercise ( Perhaps related to eating.), Lifting, Sick Contact, Trauma, Other Associated Symptoms: Reports: Chest Pain, Cough (Brings up some sputum in the mornings.), cough w sputum, Malaise, Shortness of Breath. Denies: No Other Symptoms (See history of present illness), Confusion, Diaphoresis, Fever/Chills , Headaches, Loss of Appetite, Rash, Seizure, Syncope, Weakness Treatments COMMUNICATION SPEC: Reports: Other (see below) (Only his prescribed medications.) - Related Data Allergies Allergy/AdvReac Type Severity Reaction Status Date / Time No Known Allergies Allergy Verified 01/28/19 19:34 Home Meds: Home Meds Allopurinol [Zyloprim] 200 mg PO DAILY PRN 11/20/13 [History] Cholecalciferol (Vitamin D3) [Vitamin D3] 4,000 units PO DAILY 10/18/17 [History ] Dipyridamole 75 mg PO BID 10/18/17 [History] Fluorometholone [Fluorometholone 0.1% Ophth Susp] 1 drop OP DAILY 10/18/17 [ History] Gemfibrozil 600 mg PO DAILY 10/18/17 [History] Sodium Chloride 5% [Nixon 128 5% Ophth Soln] 1 drop EYERT QID PRN 10/18/17 [ History] Metoprolol Tartrate 50 mg PO BID #0 10/20/17 [Rx] Simvastatin [Zocor] 40 mg PO DAILY #0 10/20/17 [Rx] Acyclovir 400 mg PO DAILY 01/28/19 [History] Aspirin [Aspirin EC] 325 mg PO BID 01/28/19 [History] Clotrimazole [Clotrimazole 1%] 1 gm TOP BID 01/28/19 [History] Fish Oil/Elko-3 Fatty Acids [Fish Oil 1,000 MG] 1,000 mg PO DAILY 01/28/19 [ History] Lisinopril 40 mg PO BID 01/28/19 [History] Meloxicam 7.5 mg PO DAILY 01/28/19 [History] Multivitamin [Multivitamins] 1 cap PO DAILY 01/28/19 [History] Nortriptyline HCl [Pamelor] 10 mg PO BEDTIME 01/28/19 [History] Polyethylene Glycol 3350 [MiraLAX] 17 gm PO DAILY #1 cont 01/28/19 [Rx] Ranitidine [Zantac] 150 mg PO DAILY 01/28/19 [History] Terazosin HCl [Terazosin] 2 mg PO TID 01/28/19 [History] metFORMIN [Glucophage] 500 mg PO BID 01/28/19 [History] Past Medical History HEENT History: Reports: Cataract Cardiovascular History: Reports: Hypertension, SOB on Exertion Respiratory History: Reports: Sleep Apnea, Other (See Below) Other Respiratory History: States he can't wear a mask because he moves around too much. He is known to have a large pulmonary nodule right lower lobe along for many years. He was exposed to agent orange while in [place]. Gastrointestinal History: Reports: Cholelithiasis (Has had cholecystectomy.), Chronic Constipation, Diverticulosis (At 14 inches of his sigmoid colon removed in the past due to diverticulitis and polyps) Genitourinary History: Reports: Other (See Below) Other Genitourinary History: "weak stream" Musculoskeletal History: Reports: Arthritis, Back Pain, Chronic, Gout Neurological History: Reports: CVA, TIA, Other (See Below) Other Neuro History: hemorrhagic stroke in 1994 Psychiatric History: Reports: Depression, PTSD Endocrine/Metabolic History: Reports: Diabetes, Type II (Diet and medication control), Obesity/BMI 30+ - Infectious Disease History Infectious Disease History: Reports: Chicken Pox, Influenza - Past Surgical History Respiratory Surgical History: Reports: None GI Surgical History: Reports: Appendectomy, Other (See Below) Other GI Surgeries/Procedures: gallstone removal, liver laceration from gallstone removal, 14" of colon removed Male Surgical History: Reports: Circumcision, Vasectomy Endocrine Surgical History: Reports: None Musculoskeletal Surgical History: Reports: Other (See Below) Other Musculoskeletal Surgeries/Procedures:: columba, pins and rods in the left knee Social & Family History - Family History Family Medical History: Noncontributory - Tobacco Use Smoking Status *Q: Former Smoker (Or 2 years when he was in [place].) Tobacco Use Within Last Twelve Months: Cigarettes Used Tobacco, but Quit: Yes Month/Year Tobacco Last Used: 1999 - Caffeine Use Caffeine Use: Reports: Coffee Other Caffeine Use: 4-5cupsofcoffee everyday - Living Situation & Occupation Living situation: Reports: Occupation: Retired 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 Denies: Fever , Chills, Night Sweats, Diaphoresis, Decreased Appetite HEENT: Reports: Glasses, Hearing Loss, Other (Currently has no teeth and therefore can't eat anything firm. His diet is been very soft.) Respiratory: Reports: Shortness of Breath (Does not wear hearing aids.), Cough, Sputum. Denies: Wheezing, Pleuritic Chest Pain, Hemoptysis (Usually first thing in the morning.) Cardiovascular: Reports: Chest Pain, Blood Pressure Problem, Dyspnea on Exertion (Lower retrosternal chest pains), Orthopnea, Palpitations. Denies: No Symptoms, Claudication, Edema, Lightheadedness Endocrine: Reports: Fatigue GI/Abdominal: Reports: Abdominal Pain (Chronic upper abdominal pain issues due to ventral hernia since having gallbladder removed many years ago.), Constipation : Reports: Frequency (Constipation due to medications he is using for chronic low back pain.), Other (BPH. Usually nocturia 3.) Musculoskeletal: Reports: Shoulder Pain (Severe shoulder pain due to fall off of curb), Back Pain ( 6 months ago with torn rotator cuff right shoulder. States he is now slowly able to raise his arm but still has chronic pain.to back pain due to falling down stairs with apparent compression fracture. No radiculopathy into his legs. ) Skin: Reports: No Symptoms Neurological: Reports: No Symptoms Psychiatric: Reports: No Symptoms, Anxiety Hematologic/Lymphatic: Reports: No Symptoms (Admits that stress pains made him very anxious tonight.) Immunologic: Reports: No Symptoms ED EXAM, GENERAL - Physical Exam Exam: See Below Exam Limited By: No Limitations General Appearance: Alert, WD/WN, Anxious, Moderate Distress, Other (Temp is 36.7 heart rate was 78 in sinus on the monitor. With no arrhythmias appreciated. Respiratory distress 20 with O2 sats of 93% on room air. He states that she is normal. BP is 149/86.) Eye Exam: Bilateral Eye: Normal Inspection (No scleral icterus or bore femoral pallor.) Throat/Mouth: Normal Inspection, Normal Lips, Normal Oropharynx (Has no teeth.) , Other Neck: Limited Range of Motion, Tender Lateral (Crepitus on lateral rotation of the neck.). No: Carotid Bruit ( Lateral neck are tender.), Lymphadenopathy (L) , Lymphadenopathy (R), Thyromegaly Respiratory/Chest: No Respiratory Distress, Lungs Clear, Normal Breath Sounds, No Accessory Muscle Use, Chest Non-Tender, Decreased Breath Sounds (Breasts sounds are slightly diminished in both bases.). No: Rhonchi, Wheezing Cardiovascular: Regular Rate, Rhythm, No Edema, No Gallop, No Murmur, No Rub Peripheral Pulses: 2+: Posterior Tibial (L), Posterior Tibial (R), Dorsalis Pedis (L), Dorsalis Pedis (R) GI/Abdominal: Normal Bowel Sounds, Soft, Non-Tender, No Organomegaly, No Abnormal Bruit, No Mass, Pelvis Stable, Tender (Tender to palpation epigastrium and right upper quadrant.), Hernia (Large ventral hernia), Mass (Result firmness to his right upper quadrant of the abdomen in the distribution of the liver.), Other ( epigastrium and to the right of the upper abdomen. open cholecystectomy scar from epigastrium to anterior axillary line right side ) Back Exam: Normal Inspection, Decreased Range of Motion, Vertebral Tenderness ( Tenderness throughout the lumbar spine with decreased range of motion. Throughout the lumbar spine.). No: CVA Tenderness (L), CVA Tenderness (R) Extremities: Pedal Edema (Sputum edema at the ankles.), Other (He can raise or abduct his right shoulder to about 80 before limited by pain. Toward flexing to about 70. Evidence of osteophytic changes in both knees and hips.) Neurological: Alert, Oriented, CN II-XII Intact, Normal Cognition Psychiatric: Normal Mood, Anxious Skin Exam: Warm (Mildly anxious.), Dry, Intact, Normal Color, No Rash EKG INTERPRETATION EKG Date: 01/28/19 Time: 19:29 Rhythm: NSR Rate (Beats/Min): 73 [place]: LAD-Left [place] Deviation (-20) P-Wave: Present QRS: Other (Early R-wave transition with poor R-wave progression. Consider right ventricular hypertrophy pattern. There is a left ventricular hypertrophy pattern with tall R waves in leads aVL and 1. There are Q waves in V1 and aVL approximately 25% of the QRS complex or lasts consider possible old lateral wall myocardial infarction.) ST-T: Normal QT: Normal EKG Interpretation Comments: Abnormal ECG. No acute ischemic changes. Course - Vital Signs Last Recorded V/S: Last Vital Signs Temp 36.7 C 01/28/19 19:26 Pulse 78 01/28/19 19:26 Resp 20 01/28/19 19:26 BP 149/86 H 01/28/19 19:26 Pulse Ox 92 L 01/28/19 20:00 - Orders/Labs/Meds Orders: Active Orders 24 hr Category Date Time Status EKG 12 Lead [EKG Documentation Completion] [RC] STAT Care 01/28/19 19:25 Active Oxygen Therapy [RC] ASDIRECTED Care 01/28/19 19:45 Active Peripheral IV Care [RC] . DIRECTED Care 01/28/19 19:45 Active Abdomen 1V Flat [CR] Stat Exams 01/28/19 19:44 Taken Chest 1V Frontal [CR] Stat Exams 01/28/19 19:44 Taken Peripheral IV Insertion Adult [OM.PC] Stat Oth 01/28/19 19:45 Ordered Labs: Laboratory Tests 01/28/19 01/28/19 01/28/19 Range/Units 19:50 19:50 19:50 WBC 7.37 (4.23-9.07) K/mm3 RBC 4.95 (4.63-6.08) M/mm3 Hgb 14.5 (13.7-17.5) gm/dl Hct 42.4 (40.1-51.0) % MCV 85.7 (79.0-92.2) fl MCH 29.3 (25.7-32.2) pg MCHC 34.2 (32.2-35.5) g/dl RDW Std Deviation 44.5 H (35.1-43.9) fL Plt Count 150 L (163-337) K/mm3 MPV 10.5 (9.4-12.3) fl Neut % (Auto) 62.0 (34.0-67.9) % Lymph % (Auto) 21.4 L (21.8-53.1) % Burt % (Auto) 9.0 (5.3-12.2) % Eos % (Auto) 7.2 H (0.8-7.0) Baso % (Auto) 0.3 (0.1-1.2) % Neut # (Auto) 4.57 (1.78-5.38) K/mm3 Lymph # (Auto) 1.58 (1.32-3.57) K/mm3 Burt # (Auto) 0.66 (0.30-0.82) K/mm3 Eos # (Auto) 0.53 (0.04-0.54) K/mm3 Baso # (Auto) 0.02 (0.01-0.08) K/mm3 PT 11.0 (9.7-12.0) SECONDS INR 1.01 APTT 27 (22-31) SECONDS D-Dimer, Quantitative (0.19-0.50) mg/L Sodium 140 (136-145) mEq/L Potassium 3.8 (3.5-5.1) mEq/L Chloride 104 (98-107) mEq/L Carbon Dioxide 26 (21-32) mEq/L Anion Gap 13.8 (5-15) BUN 20 H (7-18) mg/dL Creatinine 1.2 (0.7-1.3) mg/dL Est Cr Clr Drug Dosing 58.38 mL/min Estimated GFR (MDRD) 59 (>60) mL/min BUN/Creatinine Ratio 16.7 (14-18) Glucose 115 (83-115) mg/dL Calcium 10.1 (8.5-10.1) mg/dL Magnesium 2.3 (1.8-2.4) mg/dl Total Bilirubin 0.7 (0.2-1.0) mg/dL AST 24 (15-37) U/L ALT 45 (16-63) U/L Alkaline Phosphatase 79 (46-116) U/L CK-MB (CK-2) 3.3 (0-3.6) ng/ml Troponin I < 0.017 (0.00-0.056) ng/mL C-Reactive Protein < 0.2 (<1.0) mg/dL NT-Pro-B Natriuret Pep (0-450) pg/mL Total Protein 7.5 (6.4-8.2) g/dl Albumin 4.2 (3.4-5.0) g/dl Globulin 3.3 gm/dL Albumin/Globulin Ratio 1.3 (1-2) Lipase (73-393) U/L TSH 3rd Generation (0.358-3.74) uIU/mL 01/28/19 01/28/19 01/28/19 Range/Units 19:50 19:50 19:50 WBC (4.23-9.07) K/mm3 RBC (4.63-6.08) M/mm3 Hgb (13.7-17.5) gm/dl Hct (40.1-51.0) % MCV (79.0-92.2) fl MCH (25.7-32.2) pg MCHC (32.2-35.5) g/dl RDW Std Deviation (35.1-43.9) fL Plt Count (163-337) K/mm3 MPV (9.4-12.3) fl Neut % (Auto) (34.0-67.9) % Lymph % (Auto) (21.8-53.1) % Burt % (Auto) (5.3-12.2) % Eos % (Auto) (0.8-7.0) Baso % (Auto) (0.1-1.2) % Neut # (Auto) (1.78-5.38) K/mm3 Lymph # (Auto) (1.32-3.57) K/mm3 Burt # (Auto) (0.30-0.82) K/mm3 Eos # (Auto) (0.04-0.54) K/mm3 Baso # (Auto) (0.01-0.08) K/mm3 PT (9.7-12.0) SECONDS INR APTT (22-31) SECONDS D-Dimer, Quantitative 0.29 (0.19-0.50) mg/L Sodium (136-145) mEq/L Potassium (3.5-5.1) mEq/L Chloride (98-107) mEq/L Carbon Dioxide (21-32) mEq/L Anion Gap (5-15) BUN (7-18) mg/dL Creatinine (0.7-1.3) mg/dL Est Cr Clr Drug Dosing mL/min Estimated GFR (MDRD) (>60) mL/min BUN/Creatinine Ratio (14-18) Glucose (83-115) mg/dL Calcium (8.5-10.1) mg/dL Magnesium (1.8-2.4) mg/dl Total Bilirubin (0.2-1.0) mg/dL AST (15-37) U/L ALT (16-63) U/L Alkaline Phosphatase (46-116) U/L CK-MB (CK-2) (0-3.6) ng/ml Troponin I (0.00-0.056) ng/mL C-Reactive Protein (<1.0) mg/dL NT-Pro-B Natriuret Pep 83 (0-450) pg/mL Total Protein (6.4-8.2) g/dl Albumin (3.4-5.0) g/dl Globulin gm/dL Albumin/Globulin Ratio (1-2) Lipase 127 (73-393) U/L TSH 3rd Generation 3.179 (0.358-3.74) uIU/mL Meds: Medications Discontinued Medications Generic Name Dose Route Start Last Admin Trade Name Freq PRN Reason Stop Dose Admin Magnesium Citrate 210 ml 01/28/19 21:15 01/28/19 21:30 Citrate Of Magnesia PO 01/28/19 21:16 210 ml ONETIME ONE Administration Sodium Chloride 10 ml 01/28/19 19:44 01/28/19 20:00 Saline Flush FLUSH 10 ml ASDIRECTED PRN Administration Keep Vein Open - Radiology Interpretation Free Text/Narrative:: 73-year-old male presents to the ED for evaluation of recurrent sharp stabbing epigastric lower retrosternal chest pains 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 Seems to be aggravated by food any scan this in the past. He believes that his heart is skipping at times. However the monitor has not shown any arrhythmias while he was in examination room or on the ECG. It is unclear. Is any past history of paroxysmal atrial fibrillation. I believe his current chest pains are secondary to upper abdominal problems referred up into his lower chest. He definitely feels that there is a relationship between eating and development of these pains. He has more constipated as of late with changes to medications for back pain. Plan he will have one view of the chest 1 view of the abdomen performed. Routine labs to be collected including serum lipase. - Re-Assessments/Exams Free Text/Narrative Re-Assessment/Exam: 01/28/19 20:43 chest x-ray reveals slight hyperinflated lung browning. He has a dromedary hump of his right hemidiaphragm posterior leaflet. Cardiac silhouette is upper limits of normal. He appears to have a prominent thoracic aorta with likely mild aneurysmal dilatation. X-rays of the abdomen reveal no air-fluid levels but a large amount of constipation or stool particularly throughout the transverse colon. 01/28/19 21:04 White count is 7.37. Auto differential 62% neutrophils. Hemoglobin is 14.5 with hematocrit is 42.6. Platelet counts on 50,000. PT is 11.0 with an INR 1.01 PTT is 27 d-dimer 0.29. Sodium 140 with a potassium of 3.8. Chloride 104 bicarbonate 26. Anion gap is 13.8 BUN is 20. Creatinine is 1.2. GFR is 59. Glucose is 1:15 with a calcium of 10.1. Magnesium is normal at 2.3. Bilirubin is 0.7 AST is 24 ALT is 45 alkaline phosphatase stasis is 79. CK- MB is 3.3. Troponin I is less than 0.017. C-reactive protein is less than 0.2. BNP is 83. Total protein is 7.5 with albumin fraction of 4.2. Lipase is normal 127. TSH is 3.1. 01/28/19 21:15 plan patient will be sent home with magnesium citrate to take tomorrow morning 7 ounces by mouth next to 6 ounces of juice of choice to provide bowel cleanse. He will then discontinue Metamucil and replace it with MiraLAX powder 17 g or 1 scoop daily to prevent constipation. Constipation is being caused by numerous of his medications. Departure - Departure Time of Disposition: 21:16 Disposition: Home, Self-Care 01 Condition: Fair Clinical Impression: Non-cardiac chest pain, Constipation by delayed colonic transit COPD (chronic obstructive pulmonary disease) Qualifiers: COPD type: emphysema Emphysema type: panlobular Qualified Code(s): J43.1 - Panlobular emphysema Prescriptions: Polyethylene Glycol 3350 [MiraLAX] 17 gm PO DAILY #1 cont Instructions: Chronic Obstructive Pulmonary Disease, [id number] Referrals: Chana Loyola MD [Primary Care Provider] - Forms: ED Department Discharge Additional Instructions: Evaluation the emergency room tonight in regards to recurrent sharp stabbing chest pains since yesterday morning. Feeling of also that the heart is skipping and jumping beats. Continuous ECG monitoring in the ED for the last hour and a half did not reveal any abnormal heartbeats. Lab work shows no evidence of any heart related problems such as heart attack or blood clots in the lungs. There is also no extra fluid build up in the lungs. Chest x-ray shows a pulmonary nodule in the right lower lobe of the lung which is stable at this point time. Assuming changes are appreciated. There is a large amount of stool in the upper : Across the upper abdomen on the abdominal x-rays. I suspect the sharp stabbing pains in her chest are being referred from the abdominal wall where there is a large ventral hernia and possibly from the colon from cramping. Those pains do not seem to be heart related. The pressure in build up in the upper abdomen night to help the heart and cause it to skipping this beats at times but we were not able to detect this tonight. Is problematic in the future you could take an extra dose of metoprolol to suppress the extra skipped beats. Suggest bowel cleanse with magnesium citrate or Citroma tomorrow morning. Takes 7 ounces mixed with 6 ounces of juice of choice by mouth once. This will take an hour to to work but her bowels will work about 3 or 4 times often ending and diarrhea. Then suggest starting MiraLAX powder 17 g or 1 scoop every day to prevent constipation from occurring. Constipation is occurring secondary to numerous of your medications so in the bowel down. Follow-up with personal care physician or the [facility] if any further problems occur. Sepsis Event Note - Evaluation Sepsis Screening Result: No Definite Risk - Focused Exam Vital Signs: Vital Signs Temp Pulse Resp BP Pulse Ox Pulse Ox 01/28/19 20:00 92 L 01/28/19 19:26 36.7 C 78 20 149/86 H 93 L Date Exam was Performed: 01/29/19 Time Exam was Performed: 00:21 - My Orders Last 24 Hours: My Active Orders 01/28/19 19:25 EKG 12 Lead [EKG Documentation Completion] [RC] STAT 01/28/19 19:44 Abdomen 1V Flat [CR] Stat Chest 1V Frontal [CR] Stat 01/28/19 19:45 Oxygen Therapy [RC] ASDIRECTED Peripheral IV Care [RC] . DIRECTED Peripheral IV Insertion Adult [OM.PC] Stat - Assessment/Plan Last 24 Hours: My Active Orders 01/28/19 19:25 EKG 12 Lead [EKG Documentation Completion] [RC] STAT 01/28/19 19:44 Abdomen 1V Flat [CR] Stat Chest 1V Frontal [CR] Stat 01/28/19 19:45 Oxygen Therapy [RC] ASDIRECTED Peripheral IV Care [RC] . DIRECTED Peripheral IV Insertion Adult [OM.PC] Stat
[2019-01-28] MEDS ORDERED: Magnesium Citrate Solution 296 ML Bottle PO ONE (21:15)
--- NOTE | 2019-01-29 09:43 | CR ---
Chest: PA view of the chest was obtained. Comparison: Prior chest CT study of 10/17/17 and chest x-ray also performed on 10/17/17. Stable calcified granuloma within the right base. Slight scarring is noted within the lateral left costophrenic angle. Lungs otherwise are clear with no acute parenchymal change. Heart size is normal. Tortuous thoracic aorta is seen. Bony structures are grossly intact. Impression: 1. Findings as noted above. 2. Nothing acute is appreciated on PA chest x-ray. Diagnostic code #2 This report was dictated in [place] Standard Time
--- NOTE | 2019-01-29 09:43 | CR ---
Abdomen: Supine view of the abdomen was obtained. Comparison: Previous abdominal x-ray of 10/17/17. Scattered degenerative change is noted within the spine with disc space narrowing and endplate osteophytes. Surgical clips are noted within the upper right abdomen. Bowel gas pattern is normal. Calcifications are seen within the pelvis which are compatible phleboliths. Impression: 1. Nothing acute is appreciated on supine abdominal x-ray. Diagnostic code #2 This report was dictated in [place] Standard Time
== END 2019-01-28 21:35 | disposition home or self-care (01) ==
LOC: JD.ED 19:17
DX: R07.89 Other chest pain (principal); K59.00 Constipation, unspecified; J43.1 Panlobular emphysema; E11.9 Type 2 diabetes mellitus without complications; I10 Essential (primary) hypertension; Z86.73 Personal history of transient ischemic attack (TIA), and cerebral infarction without residual deficits; E66.9 Obesity, unspecified; Z68.38 Body mass index [BMI] 38.0-38.9, adult; Z87.891 Personal history of nicotine dependence; Z79.82 Long term (current) use of aspirin; Z79.84 Long term (current) use of oral hypoglycemic drugs; Z79.899 Other long term (current) drug therapy
CPT/HCPCS: 36415; 71045; 74018; 80053; 82553; 83690; 83735; 83880; 84443; 84484; 85025; 85379; 85610; 85730; 86140; 93005; 99285; A9270; 93010

== ENCOUNTER 2024-09-12 06:38 | Inpatient (IN) | payer MEDICARE, OTHER ==
[2024-09-12 06:53] LABS: BASOPHILS ABSOLUTE AUTO 0.0 K/mm3 (0.0-0.2); BASOPHILS PERCENT AUTO 0.4 % (0.0-1.0); EOSINOPHILS ABSOLUTE AUTO 0.2 K/mm3 (0.0-0.4); EOSINOPHILS PERCENT AUTO 2.1 % (0.0-6.0); IMMATURE GRAN ABSOLUTE AUTO 0.04 K/mm3 (0.00-0.05); IMMATURE GRAN PERCENT AUTO 0.4 % (0.0-0.4); LYMPHOCYTES ABSOLUTE AUTO 1.6 K/mm3 (1.0-4.8); LYMPHOCYTES PERCENT AUTO 17.3 % (24.0-44.0); MEAN PLATELET VOLUME 10.4 fl (9.4-12.4); MONOCYTES ABSOLUTE AUTO 0.5 K/mm3 (0.0-0.8); MONOCYTES PERCENT AUTO 5.7 % (0.0-8.0); NEUTROPHILS ABSOLUTE AUTO 6.6 K/mm3 (1.8-7.7); NEUTROPHILS PERCENT AUTO 74.1 % (41.0-71.0); NRBC ABSOLUTE 0.00 (0.00-0.02); NRBC PERCENT 0.0 % (0.0-0.2); PLATELET COUNT,PLT 165 K/mm3 (150-400); RED BLOOD CELL COUNT 4.86 M/mm3 (4.52-5.90); WHITE BLOOD CELL COUNT,WBC 8.97 K/mm3 (3.9-11.3)
[2024-09-12 07:16] LABS: LACTIC ACID 2.3 mmol/L (0.4-2.0)
[2024-09-12] MEDS: Ondansetron 4 MG/2 ML SDV IVPUSH ONE ×2 (07:17→09:57)
[2024-09-12] MEDS: Sodium Chloride 0.9% 10 ML Syringe FLUSH PRN (07:17)
[2024-09-12 07:21] LABS: A/G RATIO 1.0 (1-2); ALANINE AMINOTRANSFERASE,ALT 40.0 U/L (16-63); ASPARTATE AMNIOTRANSFERASE,AST 23.0 U/L (15-37); BILIRUBIN TOTAL 0.4 mg/dL (0.2-1.0); BLOOD UREA NITROGEN,BUN 15.0 mg/dL (7-18); CARBON DIOXIDE,CO2 23.0 mEq/L (21-32); CHLORIDE,CL 104.0 mEq/L (98-107); CREATININE 1.4 mg/dL (0.7-1.3); EST CRCL DRUG DOSING (CG) 45.42 mL/min; ESTIMATED GFR 50.0 mL/min (>60); GLUCOSE RANDOM 209.0 mg/dL (70-99); POTASSIUM,K 3.9 mEq/L (3.5-5.1); PROTEIN TOTAL,TP 6.6 g/dl (6.4-8.2); SODIUM,NA 138.0 mEq/L (136-145); TROPONIN I HIGH SENSITIVITY 9.0 pg/mL (<=76)
[2024-09-12] MEDS: Dexamethasone 4 MG/ML SDV IVPUSH STA (09:57)
[2024-09-12] MEDS: Iopamidol 755 Mg/ML 100 ML Bottle IVPUSH ONE (14:01)
[2024-09-12 14:39] LABS: APPEARANCE,URINE CLEAR (Clear); GLUCOSE,URINE TRACE (Negative); OCCULT BLOOD,URINE 1+ (Negative)
[2024-09-12 14:54] LABS: LACTIC ACID 2.1 mmol/L (0.4-2.0)
[2024-09-12 14:57] LABS: EPITHELIAL CELLS,URINE 0-5 /hpf (0-5)
[2024-09-12] MEDS ORDERED: Non-Formulary Medication 1 Each (Simvastatin 40 MG Tablet) PO SCH (21:00)
[2024-09-13 06:08] LABS: BASOPHILS ABSOLUTE AUTO 0.0 K/mm3 (0.0-0.2); BASOPHILS PERCENT AUTO 0.1 % (0.0-1.0); EOSINOPHILS ABSOLUTE AUTO 0.0 K/mm3 (0.0-0.4); EOSINOPHILS PERCENT AUTO 0.1 % (0.0-6.0); IMMATURE GRAN ABSOLUTE AUTO 0.06 K/mm3 (0.00-0.05); IMMATURE GRAN PERCENT AUTO 0.5 % (0.0-0.4); LYMPHOCYTES ABSOLUTE AUTO 1.2 K/mm3 (1.0-4.8); LYMPHOCYTES PERCENT AUTO 11.3 % (24.0-44.0); MEAN PLATELET VOLUME 10.8 fl (9.4-12.4); MONOCYTES ABSOLUTE AUTO 0.6 K/mm3 (0.0-0.8); MONOCYTES PERCENT AUTO 5.7 % (0.0-8.0); NEUTROPHILS ABSOLUTE AUTO 9.0 K/mm3 (1.8-7.7); NEUTROPHILS PERCENT AUTO 82.3 % (41.0-71.0); NRBC ABSOLUTE 0.00 (0.00-0.02); NRBC PERCENT 0.0 % (0.0-0.2); PLATELET COUNT,PLT 168 K/mm3 (150-400); RED BLOOD CELL COUNT 4.32 M/mm3 (4.52-5.90); WHITE BLOOD CELL COUNT,WBC 10.96 K/mm3 (3.9-11.3)
[2024-09-13 06:28] LABS: BLOOD UREA NITROGEN,BUN 13.0 mg/dL (7-18); CARBON DIOXIDE,CO2 26.0 mEq/L (21-32); CHLORIDE,CL 105.0 mEq/L (98-107); CREATININE 1.1 mg/dL (0.7-1.3); EST CRCL DRUG DOSING (CG) 57.81 mL/min; ESTIMATED GFR 67.0 mL/min (>60); GLUCOSE RANDOM 143.0 mg/dL (70-99); POTASSIUM,K 4.0 mEq/L (3.5-5.1); SODIUM,NA 138.0 mEq/L (136-145)
[2024-09-13] MEDS: Dexamethasone 4 MG/ML SDV IVPUSH SCH ×2 (10:07→17:47)
[2024-09-13] MEDS: Ondansetron 4 MG/2 ML SDV IVPUSH PRN (10:26)
[2024-09-13] MEDS: Gadobenate Dimeglumine 529 MG/ML 15 ML SDV IARTIC ONE (11:14)
[2024-09-13] MEDS: Insulin Lispro 100 Unit/ML 3 ML KwikPen SUBCUT SCH (12:00)
[2024-09-13 16:35] VITALS: BP 131/69; PULSE 62
== END 2024-09-13 18:26 | DRG 54 ==
LOC: JD.ED 06:38 → JD.MS 09:45
PROVIDERS: ADMIT Family Medicine; ATTEND Family Medicine
DX: C71.9 Malignant neoplasm of brain, unspecified (principal); N18.9 Chronic kidney disease, unspecified; G93.6 Cerebral edema; J96.21 Acute and chronic respiratory failure with hypoxia; G95.9 Disease of spinal cord, unspecified; R53.83 Other fatigue; C83.390 Primary central nervous system lymphoma; I10 Essential (primary) hypertension; J98.11 Atelectasis; E11.9 Type 2 diabetes mellitus without complications; G93.9 Disorder of brain, unspecified; I12.9 Hypertensive chronic kidney disease with stage 1 through stage 4 chronic kidney disease, or unspecified chronic kidney disease; H26.9 Unspecified cataract; Z68.39 Body mass index [BMI] 39.0-39.9, adult; G47.30 Sleep apnea, unspecified; K80.20 Calculus of gallbladder without cholecystitis without obstruction; K59.09 Other constipation; M19.90 Unspecified osteoarthritis, unspecified site; E11.22 Type 2 diabetes mellitus with diabetic chronic kidney disease; J44.9 Chronic obstructive pulmonary disease, unspecified; J43.1 Panlobular emphysema; N18.2 Chronic kidney disease, stage 2 (mild); M54.9 Dorsalgia, unspecified; G89.29 Other chronic pain; M10.9 Gout, unspecified; F32.A Depression, unspecified; F43.12 Post-traumatic stress disorder, chronic; E66.9 Obesity, unspecified; Z68.36 Body mass index [BMI] 36.0-36.9, adult; Z98.890 Other specified postprocedural states; Z99.81 Dependence on supplemental oxygen; Z79.899 Other long term (current) drug therapy; Z90.49 Acquired absence of other specified parts of digestive tract; Z86.73 Personal history of transient ischemic attack (TIA), and cerebral infarction without residual deficits; Z87.891 Personal history of nicotine dependence; Z79.84 Long term (current) use of oral hypoglycemic drugs
CPT/HCPCS: 36415; 70450; 71045; 80053; 83605; 83735; 83880; 84484; 85025; 93005; 96374; 99285; J2405; 70553; 70553-26; 71270; 71270-26; 74178; 74178-26; 80048; 81001; 82947; 94761; 97161-GP; 97166-GO; 97530-GP; 97535-GO; A9270-GY; A9577; J1100; J1650; J7030; Q9967